=== PATIENT | female | born 1980 | race Caucasian/White ===

== ENCOUNTER 2024-11-10 09:00 | Outpatient (AMB) | payer MEDICARE, MEDICAID, SELFPAY ==
[2024-11-10 09:10] VITALS: BMI 31.5
--- NOTE | 2024-11-10 09:10 | HO.SPINEOV ---
Vital Signs 11/10/24 09:10 Height 5 ft 7 in Weight 201 lb 2 oz BMI 31.5 Intake Visit Reasons: Neck pain Intake Note: Ms. Allison Luz is here today c/o neck pain. Heating And Air Conditioning Mechanic Required: No Allergies Latex, Natural Rubber Allergy (Severe, Verified 11/10/24 09:13) Swelling meperidine (From Demerol) Allergy (Severe, Verified 11/10/24 09:13) Swelling quetiapine (From Seroquel) Allergy (Severe, Verified 11/10/24 09:13) Swelling Physical Exam Vital Signs: BMI result Body Mass Index 31.5 Assessment & Plan Assessment & Plan (1) Cervical disc disorder: Code(s): M50.90 - Cervical disc disorder, unspecified, unspecified cervical region Category: Medical Plan Dear Gordo Thank you for referring Mrs Cooper to our office today. She is a very nice 44-year-old female who has had chronic neck pain for many years, also reports a history of scoliosis, who comes in today for evaluation of MRI done at [facility] showing degenerative disc disease primarily at C3-4 and C4-5. What she reports as a posterior neck pain that radiates up to the back of her head and also goes down into her shoulders. At times she will get tingling down her arms but does not have major symptom at this point, it is primarily the pain in the neck. She did try physical therapy once and lasted 1 session and felt that it was too painful to continue. She has not done any injections. She more less just takes a leave to deal with the symptoms. No myelopathic complaints. Also reports a component of back pain that radiates down the back of her legs when she walks. PMH: Her history is a little complicated, she has history of bipolar and apparently it is managed well at this point but she is disabled from it, she has history of anxiety. 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 She is not really sure where she is in the process of working this up, she knows that she is supposed to see someone for this, but is not really sure where she stands regarding it. She is also told she had a swollen kidney or what sounds like hydronephrosis which could be secondary to her kidney stones. 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 Reports history of some kind of complex cyst that was found in her abdomen as well. She does not know the exact diagnosis. She is status post appendectomy, she also had a history of a debridement of a wound after being scratched by a cat. She is not clear that this was MRSA or if it was just secondary to the cat scratch organisms. Denies any history of hypertension, cardiopulmonary disease, stroke, liver disease, bleeding disorders, blood clots or major abdominal surgery. 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 Medications: Colace, Depakote, prazosin, gabapentin, baclofen, naproxen, albuterol, oxybutynin and divalproex. Allergies: Demerol, Seroquel Physical exam: Awake alert oriented no acute distress, she is able to stand up independently walk down the hallway with normal gait, tandem gait walking reveals no instability, she has some mild strength loss in her right hand but otherwise strength is full. Reflexes diminished bilaterally at the biceps and triceps. No Wyatt's sign. Lower extremity patellar reflexes are normal, absent reflexes at the Achilles. No clonus. Imaging review: There is cervical MRI done in September 2024 at [facility] which shows cervical degenerative disc disease primarily C3-4 and C4-5 where there is relatively severe disc collapse, bilateral neuroforaminal stenosis at C4-5. Moderate central canal stenosis but no cord signal changes seen. There is a little bit of foraminal stenosis on the left at C5-6 as well. Impression: 44-year-old female presents for evaluation of multi decade history of posterior neck pain which radiates into her shoulders which may be related to her cervical disc degeneration. At this point she has had no dedicated conservative treatment other than just trying to leave. I told her we should at least try some basic things. She is interested in cortisone injections. She is not all that interested in doing physical therapy again but I told her it would be a prerequisite before surgery secondary to normal insurance protocols. I would like to see her back in 3 months and we can re-evaluate. I did tell her that before we could consider surgery, she would need to have some kind of establish care with regard to the brain tumor and what the status of that is before anyone would consider putting her under anesthesia. Also, she has some kind of abdominal cyst and a growth in her mouth which could be cancerous given her history of alcohol abuse and long-term smoking. She needs to get some kind of dental care to figure that out as well. Thank you for allowing us to care for your patient. The total time spent with this visit with this patient was 45 minutes reviewing history, physical exam, cervical imaging review, and implementation of treatment plan or further diagnostic testing Isaiah Willis MD,PhD [facility] Orders: Orders PT Evaluation and Treatment Today M50.90 - Cervical disc disorder, unspecified, unspecified cervical region Referrals Pain Management Referral M50.90 - Cervical disc disorder, unspecified, unspecified cervical region Coding Level of Care Code New Pt Level 4 (66927) Diagnoses Cervical disc disorder M50.90
--- OUTSIDE RECORDS SUMMARY | 2024-11-10 09:52 | XMS_ITS | Encounter Summary ---
Author Organization [employer] [facility] Address [address] [place] [id number] Phone Care Team Providers Care Building Maintenance Mechanic Name Role Phone Pcp, Unknown Unavailable Unavailable Gordo Tafoya PA-C Primary Care Provider [phone] Encounter Details Date Type Department Care Team (Late st Contact Info) Description 06/20/2024 Procedure Pass [facility] [address] [place] [address] Social History Tobacco Use Types Packs/Day Years Used Date Smoking Tobacco: Every Day Cigarettes 1 37.7 Started: 1989 Smokeless Tobacco: Never Alcohol Use Standard Drinks/Week Comments Not Currently 0 (1 standard drink = 0.6 oz pur e alcohol) none since new years Child or Family Care Answer Date Record ed Do you have problems with on e of the following making it difficult for you to work, study, or receive health care? I choose not to answer 04/12/2024 Education Answer Date Recorded Are you interested in help w ith more adult education (for example, completing high school, GED, job training, learning the French language, technical skills, or developing parenting skills)? No 04/12/2024 Are you concerned about learning? Not on file 04/12/2024 No 04/12/2024 Yes 04/12/2024 Food Answer Date Recorded Within the past 6 months we worried whether our food would run out before we got money to buy more. Often True 04/12/2024 Within the past 6 months the food we bought just didn't last and we didn't have enough money to get more. Often True Residential Stability Answer Date Recor ded What is your housing situation today? I have rachelle coppola 04/12/2024 How many times have you move d in the past 12 months? Zero (I did not move) 04/12/2024 Paying for Meds Answer Date Recorded Do you have trouble paying for medicines? Yes 04/12/2024 Paying Utility Bills Answer Date Record ed Do you have trouble paying your heating or elect ricity bill? Yes 04/12/2024 Transportation Answer Date Recorded Has the lack of transportati on kept you from medical appointments or from getting medications? Yes 04/12/2024 Unemployment Answer Date Recorded Are you currently unemployed or working on a part-time or temporary basis, and looking for work? No 04/12/2024 Digital Access Answer Date Recorded No 04/12/2024 Yes 04/12/2024 Do you have reliable internet access at home? Ye s 04/12/2024 Do you have a device (e.g., phone, tablet, computer) with a working camera? Yes 04/12/2024 Intimate Partner Violence Answer Date R ecorded Are you denied basic needs s uch as food, clothing, or medical care? No 04/12/2024 In the past 12 months have y ou been in a relationship with a person who hurts, threatens, or tries to control you? No 04/12/2024 Are you denied basic needs s uch as food, clothing, or medical care? No 04/12/2024 In the past 12 months have y ou been in a relationship with a person who hurts, threatens, or tries to control you? No 04/12/2024 Comments No Sex and Gender Information Value Date Recorded Sex Assigned at Female 02/06/2024 10:11 AM EST Legal Sex Female 9:24 PM EDT Gender Identity Female 02/06/2024 10:11 AM EST Sexual Orientation Not on file documented as of this encounter Plan of Treatment Upcoming Encounters Date Type Department Care Team (Late st Contact Info) Description 11/22/2024 1:00 PM EDT Office Visit Ana Moreno [facility] [address] [place] [address] Gordo Tafoya PA-C [address] [place] [address] [email or web address] 01/04/2025 9:40 AM EDT Office Visit [facility] Internal Medicine [address] [place] [address] Gordo Tafoya PA-C [address] [place] [address] documented as of this encounter Visit Diagnoses Not on filedocumented in this encounter Additional Health Concerns Assessment Noted Time PHQ-9 Depression Total Score: 22 025 6:09 PM EDT PHQ-2 Depression Total Score: 6 07/11/19 25 6:09 PM EDT documented as of this encounter Care Teams Building Maintenance Mechanic Relationship Specialty Start Date End Date Gordo Tafoya PA-C [address] [place] [id number] PCP - General Physician Jailkeeper 04/12/24 Pcp, Unknown 03/18/17 documented as of this encounter Additional Source Comments The information contained in this document represents components of the legal health record. It is not the complete legal health record.[facility]
--- OUTSIDE RECORDS SUMMARY | 2024-11-10 09:52 | XMS_ITS | Encounter Summary ---
Author Organization [email or web address] [facility] Address [address] [place] [address] Phone Care Team Providers Care Rig Manager Name Role Phone Pcp, Unknown Unavailable Unavailable Gordo Tafoya PA-C Primary Care Provider [phone] Encounter Details Date Type Department Care Team (Late st Contact Info) Description 06/08/2024 Procedure Pass [facility], Ct Scan - [facility] [address] [place] [address] Social History Tobacco Use Types Packs/Day Years Used Date Smoking Tobacco: Every Day Cigarettes 1 37.7 Started: 1989 Smokeless Tobacco: Never Alcohol Use Standard Drinks/Week Comments Yes 0 (1 standard drink = 0.6 oz pur e alcohol) 3-4 drinks, 2 x month Child or Family Care Answer Date Record ed Do you have problems with on e of the following making it difficult for you to work, study, or receive health care? I choose not to answer 04/12/2024 Education Answer Date Recorded Are you interested in help w ith more adult education (for example, completing high school, GED, job training, learning the [place] language, technical skills, or developing parenting skills)? [...] 1:00 PM EDT Office Visit Ana Moreno [facility] Internal Medicine [address] [facility] [place] [phone] Gordo Tafoya PA-C [address] [place] [address] [email or web address] 01/04/2025 9:40 AM EDT Office Visit [facility] Internal Medicine [address] [place] [address] Gordo Tafoya PA-C [address] [place] [address] documented as of this encounter Visit Diagnoses Not on filedocumented in this encounter Additional Health Concerns Assessment Noted Time PHQ-9 Depression Total Score: 20 025 8:38 AM EST PHQ-2 Depression Total Score: 6 04/12/19 25 8:38 AM EST documented as of this encounter Care Teams Rig Manager Relationship Specialty Start Date End Date Gordo Tafoya PA-C [address] [place] [address] PCP - General Physician Direct Care Provider 04/12/24 Pcp, Unknown 03/18/17 documented as of this encounter Additional Source Comments The information contained in this document represents components of the legal health record. It is not the complete legal health record.[facility]
--- OUTSIDE RECORDS SUMMARY | 2024-11-10 09:52 | XMS_ITS | Encounter Summary ---
Author Organization [email or web address] [facility] Address [address] [place] [address] Phone Care Team Providers Care Division Order Analyst Name Role Phone Pcp, Unknown Unavailable Unavailable Gordo Tafoya PA-C Primary Care Provider [phone] Encounter Details Date Type Department Care Team (Late st Contact Info) Description 08/17/2024 Procedure Pass [facility], Ct Scan - [facility] [address] [place] [address] Social History Tobacco Use Types Packs/Day Years [...] high school, GED, job training, learning the [place] language, technical skills, or developing parenting skills)? [...] 1:00 PM EDT Office Visit Ana Moreno [facility] Internal Medicine [address] [facility] [place] [phone] Gordo Tafoya PA-C [address] [place] [address] [email or web address] 01/04/2025 9:40 AM EDT Office Visit [facility] Internal Medicine [address] [place] [address] Gordo Tafoya PA-C [address] [place] [address] documented as of this encounter Visit Diagnoses Not on filedocumented in this encounter Additional Health Concerns Assessment Noted Time PHQ-9 Depression Total Score: 10 025 12:44 PM EDT PHQ-2 Depression Total Score: 3 08/19/19 25 12:44 PM EDT documented as of this encounter Care Teams Division Order Analyst Relationship Specialty Start Date End Date Gordo Tafoya PA-C [address] [place] [address] PCP - General Physician Web Applications Architect 04/12/24 Pcp, Unknown 03/18/17 documented as of this encounter Additional Source Comments The information contained in this document represents components of the legal health record. It is not the complete legal health record.[facility]
--- OUTSIDE RECORDS SUMMARY | 2024-11-10 09:53 | XMS_ITS | Clinical Summary ---
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 docusate sodium (COLACE) 100 MG capsule Take 1 capsule by mouth every morning. 4 Active divalproex (DEPAKOTE) [address] tablet Take 2 tablets (1,000 mg total) by mouth nightly at bedtime. 30 tablet 4 Active Additional Information Patient taking differently:1,000 mg Oral Nightly,250 in the morning, Reported on 09/29/2024 prazosin (MINIPRESS) 1 MG capsule Take 1 capsule (1 mg total) by mouth daily as needed (severe anxiety). 30 capsule 4 Active prazosin (MINIPRESS) 2 MG capsule Take 2 capsules (4 mg total) by mouth nightly at bedtime. 30 capsule 4 Active sennosides 17.2 mg Tab Take 2 tablets by mouth nightly at bedtime. Active oxyBUTYnin (DITROPAN-XL) 10 MG 24 hr tablet Take 10 mg by mouth every morning. Active albuterol 90 mcg/actuation inhaler INHALE 1 PUFF BY MOUTH EVERY 6 HOURS NEEDED 5 Active naproxen (NAPROSYN) 250 MG tablet Take 1 tablet (250 mg total) by mouth 2 (two) times a day as needed (pain). 60 tablet 2 5 Active naproxen sod/diphenhydr amine (ALEVE PM ORAL) Take 1 tablet by mouth nightly at bedtime. Active baclofen (LIORESAL) 5 mg tablet Take 1 tablet (5 mg total) by mouth 3 (three) times a day as needed for spasm. 15 tablet 5 Active EPINEPHrine 0.3 mg/0.3 mL auto-injector Inject 0.3 mL (0.3 mg total) into the muscle as needed for anaphylaxis. 2 each 5 Active gabapentin (NEURONTIN) 100 MG capsule Take 1 capsule (100 mg total) by mouth 3 (three) times a day. 21 capsule 5 Active senna 8.6 mg tablet TAKE 1 TABLET BY MOUTH TWICE A DAY AT 9AM AND 5PM 180 tablet 5 Active escitalopram oxalate (LEXAPRO) 20 MG tablet Take 20 mg by mouth daily. 2 10/26/19 22 Discontin ued(Error ) Active Problems Problem Noted Date Diagnosed Date Acute otitis media 09/29/2024 Assessment & Plan (09/29/2024 10:05 AM EDT): Patient noted to have a ear pain which started a couple days ago. On physical exam she has noted to have tenderness to palpation over the pinna and tragus on the right with a blunted TM and external canal shows edema and erythema. No noted tenderness palpation over the mastoid process consistent with otitis media/externa. Patient will be started on Augmentin 875 mg p.o. twice daily for 7 days. Patient was advised to take a probiotic with the antibiotic. Syncope 08/21/2024 Assessment & Plan (09/29/2024 10:08 AM EDT): Patient had been experiencing syncopal episodes in was concerned about narcolepsy however patient had a full workup with sleep medicine and it was determined not to be narcolepsy. She even underwent an echocardiogram and a 30-day Holter monitor which were noted to be negative. Stress test has been ordered and pending. An EEG was also ordered however patient needed to cancel that appointment and has not rescheduled this. However she followed up with her psychiatrist and patient was taken off of the Latuda and hydroxyzine. She states since being off these medications she has had no further episodes of syncope and states that she feels great. She notes that she has much more energy during the day and is no longer fatigued. I encouraged her to remain off the Latuda and hydroxyzine and to continue to follow-up with her psychiatrist. I did also for complete sake encourage the patient to reschedule her EEG. Assessment & Plan (08/21/2024 4:55 PM EDT): Patient had been experiencing syncopal episodes and she had brought up a concern for narcolepsy. Patient had a full workup with sleep medicine which was determined not to be narcolepsy. Given these episodes I had ordered an echocardiogram and a 30-day Holter monitor which was noted to be negative. Of note she also has a stress test that is currently pending which she has not rescheduled as of yet. I did explain to the patient that the neck step would be ordering an EEG for further assessment and to rule out seizures. Patient denies any history of convulsions, feces or urinary incontinence. -EEG ordered Left arm weakness 08/21/2024 Assessment & Plan (08/21/2024 4:53 PM EDT): Patient has been experiencing balance issues, dropping objects out of her left hand and involuntary movements of her left arm. She notes this started about 3 years ago after she fell however the symptoms resolved and then returned once again and now have progressively gotten worse. Based on these findings I was concerned about MS and therefore had ordered a cervical MRI and patient wanted to have this done at [facility] however she pushed off the appointment and then ended up not making the appointment. Unfortunately this is a telemedicine visit and therefore I am unable to do a neurologic exam. I did explain to the patient that I would like to see her in person in order to perform a neurologic assessment. Will order a cervical spine MRI for further evaluation however I did explain to the patient that this could be declined given I have not been able to perform a full assessment on her in person. Chronic left-sided low back pain without sciatic a 07/27/2024 Assessment & Plan (07/27/2024 2:19 PM EDT): Patient with a longstanding history of low back pain most recently with increase back pain noted to have muscle spasms in the paraspinous musculature of the lumbar region and lower extremity weakness on physical examination. Patient underwent recent MRI of the lumbar spine which revealed lumbar degenerative disc disease with moderate left neural foraminal narrowing at L5-S1. No lumbar spinal canal narrowing. She is scheduled to see [facility] physical therapy in the next week or 2. I have advised her to continue this. I advised her to continue taking hxmy-ejo-hundpfe medications. -Referral to [facility] for possible cortisone injections to help with her pain Hydroureteronephrosis 07/27/2024 Assessment & Plan (09/29/2024 10:06 AM EDT): Patient found to have findings on most recent CT abdomen and pelvis that back in August. She was referred to nephrology however patient states that she did go to 1 appointment but missed another appointment and feels as though is that her insurance may not be covering this particular inclusion special educator therefore she was advised to look into her insurance company to see who is covered and I am happy to send a another referral. Of note she has been having some intermittent abdominal cramping however it is also down in the lower abdomen and across no noted urinary symptoms. Assessment & Plan (07/27/2024 2:17 PM EDT): Incidental finding on MRI of lumbar spine. I have spoken to urology who will see the patient. Urgent referral placed for patient to be seen and evaluated by Dr. Don. I will also have patient be seen by nephrology and have placed a referral for Dr. Correa Vision changes 07/27/2024 Assessment & Plan (07/27/2024 2:26 PM EDT): Patient noted to have vision changes who had been seen by the area director of home health sales and a change in her prescription had been made. She continues to have some changes in her vision such as blurred vision. Of note on one of her last scan she was found to have an incidental finding of a meningioma. An MRI brain has been ordered and is currently booked on 08/04 for further investigation along with her changes in vision concern for underlying MS. Cervicalgia 07/11/2024 Assessment & Plan (09/29/2024 10:16 AM EDT): Patient has been seen for complaints of neck pain and varying weakness of her extremities. Of note patient had complaint of left upper extremity weakness however during her last office visit I was unable to do a physical exam as it was due to her telemedicine visit. Her cervical MRI revealedMultilevel degenerative changes as detailed above, most prominent at C4-C5, with moderate spinal and severe bilateral foraminal stenosis. Which would not explain her symptoms. She also has very lower extremity weakness and has undergone a lumbar MRI which revealed Lumbar degenerative disc disease with moderate left neural foraminal narrowing at L5-S1. No lumbar spinal canal narrowing. Patient had been referred to Dr.Oh blanco ever they do not accept her insurance and therefore she had also been sent to [facility] however patient did not go. Dr. Willis referral has been placed for further assessment At this time her neck pain could be a result from significant arthritis in her neck however her varying extremity weakness is unexplained and she had been worked up for MS with a brain MRI which showed an incidental finding of a meningioma and no noted lesions to suggest a mass. Her physical exam today revealed No tenderness to palpation over the spinous processes of the cervical region. No noted muscle spasms in the paraspinous musculature. Shoulder shrug on the right is 4 out of 5 with biceps and triceps bilaterally 5 out of 5. Handgrip is 5 out of 5 in the upper extremities. Right lower extremity is 5 out of 5 and left lower extremity is 3-4 out of 5. - I will await Dr. Willis evaluation and recommendations however if they feel that she would benefit from a neurology evaluation I am happy to place that referral as well. - She continues to take gabapentin 100 mg p.o. 3 times daily however patient mentions that she has only been taking this as needed. - Continue naproxen 250 mg p.o. twice daily as needed Assessment & Plan (07/11/2024 1:58 PM EDT): Patient with noted neck pain with some symptoms of weakness of her upper extremities and lower extremities along with some dexterity issues however it is hard to know how bad the dexterity issues are or if it is true weakness on physical exam as this was a telemedicine visit. I had advised that the patient to come in for an in person visit to allow me to do a full assessment of her symptoms as these typically are symptoms of either myelopathy, radiculopathy, MS or myelitis. I did explain that it would be important for her to come in next week to have a full assessment. In the meantime I have advised her to take Tylenol for pain and we will obtain a cervical x-ray to rule out any acute pathology. Meningioma 07/11/2024 Assessment & Plan (07/11/2024 2:00 PM EDT): Patient underwent a CT at the recommendation of [facility] looking for other causes of her insomnia/daytime sleepiness as she was ruled out for narcolepsy. She underwent a CT scan which revealed an incidental finding of a small calcified dural based lesion along with left tuberculum sella, consistent with a meningioma. MRI brain was ordered however patient missed the appointment therefore she was advised to call them to reschedule this as it is important for further evaluation. Of note I do not feel that this finding is or the cause of her daytime sleepiness. Irregular menstrual cycle 06/15/2024 Overview (06/15/2024): Periods getting a bit farther apart, flow can be heavier Also with hot flashes consistent with perimenopause Assessment & Plan (06/15/2024 12:00 PM EDT): Reviewed some treatment options at her annual exam, levonorgestrel IUD can be very effective in addressing heavy flow, she can consider adding estradiol patch for the hot flashes Plans to return for Mirena IUD, pamphlet given, declined pretreatment Rxs, will take ibuprofen Hot flashes 06/15/2024 Assessment & Plan (06/15/2024 12:01 PM EDT): Can add estradiol ideally transdermally with the Mirena IUD if desired Other insomnia 05/23/2024 Breast cancer screening by mammogram 04/12/2024 Assessment & Plan (04/12/2024 12:58 PM EST): Mammogram [facility] referral Colon cancer screening 04/12/2024 Assessment & Plan (04/12/2024 12:58 PM EST): GI [facility] referral Annual physical exam 04/12/2024 Assessment & Plan (04/12/2024 12:59 PM EST): I will obtain a CMP, TSH, lipid panel and fasting glucose Follow-up 1 year for annual physical Mass of mouth 04/12/2024 Assessment & Plan (04/12/2024 12:58 PM EST): Patient noted to have a 1 cm flesh-colored hard mass on the roof of her mouth. She does carry history of tobacco use concern for underlying malignancy. Patient will require a biopsy therefore we will refer to [facility] oral surgeons Bipolar disorder 04/12/2024 Assessment & Plan (07/11/2024 1:56 PM EDT): Patient with a history of bipolar disorder, anxiety and depression who follows with a psychiatrist and therapist maintained on 250 mg in the morning of Depakote and then 1000 mg nightly. She is also on hydroxyzine 25 mg twice daily as needed and Latuda 40 mg p.o. twice daily. Her PHQ-9 score is noted at 22. I did discuss this with the patient and the patient states that the majority of her anxiety and depression stems from her current medical conditions. I did explain to her that it is important for her to follow-up with her therapist as well as psychiatry as she may need a bump in her medication to get her through this time until we are able to figure out the root cause of her condition. Assessment & Plan (04/12/2024 1:01 PM EST): Patient with a history of bipolar disorder as well as anxiety and depression and is maintained on Depakote, prazosin, Latuda and Atarax. Patient was recently hospitalized for 9 days on at [facility] for a manic phase. She mentions during that time her medications were adjusted and she states that she has been doing well since she was discharged on 02/15/2024. -Continue prazosin 1 mg daily as needed and 4 mg at night -Continue Depakote 1000 mg nightly -Continue Zyprexa 5 mg nightly as needed for sleeping -Continue Atarax 50 mg every night and sometimes 25 mg during the day -Continue Latuda 40 mg p.o. twice daily -Patient follows psychiatry through [facility] last appointment was last week. -Follow with therapist weekly last appointment was last week Mass in rectum 04/12/2024 Assessment & Plan (04/12/2024 1:03 PM EST): Patient noted to have a mass around the anus which she noticed a little while back. On physical examination it is noted to be a hard flesh colored mass which is movable. It could be a hemorrhoid however patient mentions that she does not have any bleeding when she defecates and there is no blood noted in the toilet or on the tissue paper. I will have referred her to [facility] GI for further evaluation and colonoscopy Suicidal ideation 02/06/2024 Severe recurrent major depre ssion without psychotic features 02/06/2024 Resolved Problems Problem Noted Date Diagnosed Date Resolved Date Acute pain of left knee 07/27/202409/12 Assessment & Plan (07/27/2024 2:23 PM EDT): Patient with a history of knee pain however most recently started with acute knee pain a few days ago. She describes the pain on the lateral aspect of the left knee, thigh and into the tibial plateau. On physical examination she has tenderness to palpation over the left lateral aspect of the knee with noted ecchymosis. No Trauma or injury noted. Negative anterior/posterior drawer test. Negative valgus valgus stress test. -Left knee x-ray -Continue to take OTC medications as prescribed Tick bite of left knee 07/27/202409/29 Assessment & Plan (07/27/2024 2:28 PM EDT): Noted tick bite on the posterior aspect of the left knee. Patient mentions that she is unclear of how long it was attached for. It was a deer tick. She denies any rashes. However given she does not know how long it was attached for I will start her on doxycycline 100 mg p.o. twice daily x 10 days Chest pain 07/11/2024 07/27/2024 Assessment & Plan (07/11/2024 1:57 PM EDT): Patient with intermittent chest pain which she describes as chest pressure with some intermittent sharp episodes into the left chest area with some associated shortness of breath. She denies any radiation of pain into the arm or into the jaw. I will obtain a cardiac stress test however patient was advised that if she develops further chest pain she is to call 911 and be transported to the emergency department for further evaluation. Malaise and fatigue 04/26/2024 09/30/19 Assessment & Plan (07/11/2024 1:57 PM EDT): Patient with consistent malaise and fatigue which is unclear at this point. She mentions that she has been having difficulty even walking and also holding objects. The holding of the objects in her hands and dropping them as well as some weakness of her upper and lower extremities could be related to her neck also ruling out MS. Patient noted to have overall fatigue therefore I will obtain some labs to consist of Lyme, B12, iron study Cervical cancer screening 04/12/2024 Assessment & Plan (04/12/2024 12:58 PM EST): [facility] referral [facility] Encounters Date Type Department Care Team Description 11/09/2024 Refill [facility] Internal Medicine [address] [facility] [place] [address] Gordo Tafoya PA-C Medication Refill 11/08/2024 Telephone [facility] Internal Medicine [address] [facility] [place] [address] Gordo Tafoya PA-C Appointment 11/07/2024 Telephone [facility] Internal Medicine [address] [place] [address] Gordo Tafoya PA-C STD Testing 10/30/2024 9:45 AM EDT - 10/30/2024 11:59 PM EDT Hospital Encounter [facility] - [address] [place] [address] Gordo Tafoya PA-C Discharge Disposition: Home or Self Care 10/30/2024 Ancillary Orders [facility]Outside Imaging [address] [place] [address] Unknown, Unknown, 10/30/2024 Ancillary Orders [facility]Outside [facility] [address] [place] [address] Unknown, Unknown, 10/30/2024 Ancillary Orders [facility]Outside [facility] [address] [place] [address] Unknown, Unknown, 10/30/2024 Ancillary Orders [facility]Outside Imaging [address] [place] [address] Unknown, Unknown, 10/30/2024 Ancillary Orders [facility]Outside Imaging [address] [place] [address] Unknown, Unknown, 10/03/2024 Orders Only [facility] Internal Medicine [address] [place] [address] ProviderLucila MD 10/02/2024 Telephone [facility] Urology Virtual Department [address] [place] [id number] Letty Monreal MD 09/29/2024 9:00 AM EDT Office Visit [facility] Internal Medicine [address] [place] [address] Gordo Tafoya PA-C Acute otitis media, unspecified otitis media type (Primary Dx); Hydroureteronephro sis; Syncope, unspecified syncope type; Cervicalgia 09/14/2024 6:20 PM EDT - 09/14/2024 11:59 PM EDT Hospital Encounter [address] [address] Gordo Tafoya PA-C Discharge Disposition: Home or Self Care 08/24/2024 9:03 AM EDT - 08/24/2024 11:59 PM EDT Hospital Encounter [address] [address] Letty Monreal MD Discharge Disposition: Home or Self Care 08/23/2024 Telephone [facility] Internal Medicine [address] [place] [address] Gordo Tafoya PA-C PT1 08/21/2024 4:00 PM EDT Telemedicine [facility] Internal Medicine [address] [place] [address] Gordo Tafoya PA-C Left arm weakness (Primary Dx); Syncope, unspecified syncope type 08/21/2024 Procedure Pass [address] [address] 08/17/2024 Procedure Pass [address] [address] 08/17/2024 Transcribe Orders Virtual Department [address] [place] [address] Letty Monreal MD Gross hematuria (Primary Dx) 08/11/2024 Orders Only [facility] Internal Medicine [address] [place] [address] ProviderLucila MD 04/12/2024 Procedure Pass [facility] - [address] [place] [address] from Last 3 Months Immunizations Immunization Administration Dates Next Due INFLUENZA, SPLIT VIRUS, TRIVALENT PF 02/15/2024 Influenza Quadrivalent MDCK Preservative Free IM 2022 Influenza Quadrivalent Preservative Free IM 12/0 08/2020,02/07/2020 Pneumococcal conjugate PCV20 01/31/2023 Pneumococcal polysaccharide PPSV23 06/04/2010 Td (adult),2 Lf Tetanus Toxoid, PF, Adsorbed 07/2007 Tdap 06/25/2015 Family History Medical History Relation Comments Cancer Father Brain and lung c ancer Schizophrenia Father Cancer Maternal Grandmother Skin cancer Cancer Sister I do t k ow what kind but she has ang[place] cancer many times( half-sister different father) Relation Status Comments Father Maternal Grandmother Alive Sister Alive Social History Tobacco Use Types Packs/Day Years Used Date Smoking Tobacco: Every Day Cigarettes 1 30.2 Started: 08/27/1994 Smokeless Tobacco: Never Tobacco Cessation:Ready to Q uit: Not Asked; Counseling Given: Not Answered Comments:Not a full pack a day at first for many many years it was just a few per day Alcohol Use Standard Drinks/Week Comments Not Currently [...] high school, GED, job training, learning the [place] language, technical skills, or developing parenting skills)? [...] your housing situation today? I have rachelle sing 04/12/2024 How many times have you move [...] AM EST Sexual Orientation Not on file Last Filed Vital Signs Vital Sign Reading Time Taken Comments Blood Pressure 112/66 09/29/2024 8:59 AM EDT Pulse 85 09/29/2024 8:59 AM EDT Temperature 36.5 C (97.7 F) 05/23/2024 10:41 AM EDT Respiratory Rate 15 09/29/2024 8:59 AM EDT Oxygen Saturation 98% 09/29/2024 8:59 AM EDT Inhaled Oxygen Concentration - - Weight 89.6 kg (197 lb 9.6 oz) 09/29/2024 8:59 A M EDT Height 170.2 cm (5' 7.01 ) 09/29/2024 8:59 AM ED T Body Mass Index 30.94 09/29/2024 8:59 AM EDT Plan of Treatment Upcoming Encounters Date Type Department Care Team (Late st Contact Info) Description 11/22/2024 1:00 PM EDT Office Visit [facility] Internal Medicine [address] [place] [address] Gordo Tafoya PA-C [address] [place] [address] [email or web address] 01/04/2025 9:40 AM EDT Office Visit [facility] Internal Medicine [address] [place] [address] Gordo Tafoya PA-C [address] [place] [address] [email or web address] Health Maintenance Due Date Last Done Comments COLOGUARD 2023 COLONOSCOPY 2023 COLORECTAL CANCER SCREENING 2023 FIT TEST 2023 FOBT 2023 SIGMOIDOSCOPY 2023 VIRTUAL COLONOSCOPY 2023 INFLUENZA VACCINE (#1) 2024 , 2022, 02/17/2021, Additional history exists VALPROIC ACID (DEPAKENE) LEVEL 02/11/2025 02/12/2024 Adult Td,Tdap Booster 06/24/2025 06/25/2015, 008 COVID-19 VACCINE ( season) 2025 01/31/2023, 2022, 11/18/2021, Additional history exists Postponed from 11/14/2023 (Patient Declines / Guardian Declines) HIV ONE-TIME SCREENING (18-65 YEARS) 07/27/2025 Postponed from 1996 (Patient Declines / Guardian Declines) DEPRESSION SCREENING 09/29/2025 09/29/2024, 09/30/19 25 SMOKING Hx and SMOKELESS TOBACCO SCREENING 10/30/2025 10/30/2024 MAMMOGRAM 10/30/2026 10/30/2024, 12/13, 12/30/2020, Additional history exists PAP SMEAR 04/10/2027 04/10/2022, 08/31/2006 SCREENING FOR DIABETES 05/04/2027 05/04/2024, 2023 LIPID PANEL 05/04/2029 05/04/2024, 01/14, 02/07/2024 HEPATITIS C SCREENING Completed 07/09/2021 PNEUMOCOCCAL VACCINES (0-49 years) Completed 01/31/2023, 06/04/2010 HEPATITIS A VACCINES Aged Out No long er eligible based on patient's age to complete this topic HIB VACCINES Aged Out No longer eligi ble based on patient's age to complete this topic MENINGOCOCCAL VACCINES (ACWY) Aged Out No longer eligible based on patient's age to complete this topic MENINGOCOCCAL VACCINES (B) Aged Out N o longer eligible based on patient's age to complete this topic Medical Devices Not on file Procedures Procedure Name Priority Date/Time Associated Diagnosis Comments BI MAMMOGRAM SCREENING WITH TOMOSYNTHESIS WITH CAD (BILATERAL) Routine 10/30/2024 10:15 AM EDT Breast cancer screening by mammogram MRI CERVICAL SPINE (NEURO) WITH AND WITHOUT CONTRAST Routine 09/14/2024 7:32 PM EDT Left arm weakness CT ABDOMEN/PELVIS (UROGRAM) WITH AND WITHOUT CONTRAST Routine 08/24/2024 10:09 AM EDT Gross hematuria OUTSIDE IMAGING Routine 08/24/2024 8:52 AM EDT EVENT MONITOR LOOPING UP TO 30 DAYS Routine 08/18/2024 11:46 AM EDT Syncope and collapse OUTSIDE ECG Routine 08/10/2024 9:02 AM EDT LIPID PANEL Routine 05/04/2024 8:36 AM EST Annual physical exam VALPROIC ACID Timed 02/12/2024 6:50 AM EST PAP TEST Routine 04/10/2022 8:23 AM EST OUTSIDE HEPATITIS C VIRUS SCREENING Routine 07/09/2021 from Last 3 Months or Most Recently Relevant to Health Maintenance Results * BI MAMMOGRAM SCREENING WITH TOMOSYNTHESIS WITH CAD (BILATERAL) (10/30/2024 10:15 AM EDT) Anatomical Region Laterality Modality Breast Left, Breast Right, Breast Bilateral Bila teral Mammography 10/31/2024 8:40 AM EDT Impressions 10/31/2024 8:55 AM EDT No mammographic evidence of malignancy in either breast. Annual screening mammography is recommended. BI-RADS 1 NEGATIVE The patient will be notified of the results and recommendations. Narrative 10/31/2024 8:55 AM EDT BI MAMMOGRAM SCREENING WITH TOMOSYNTHESIS WITH CAD (BILATERAL) Additional patient information: Screening. COMPARISON: Comparison is made with relevant prior imaging. Breast composition: The breasts are heterogeneously dense, which may obscure small masses. FINDINGS: No abnormal masses, suspicious calcifications, or other significant findings are identified mammographically in either breast. There has been no significant interval change. Procedure Note Mary Jane Reyes MD - 10/31/2024 BI MAMMOGRAM SCREENING WITH TOMOSYNTHESIS WITH CAD (BILATERAL) Additional patient information: Screening. COMPARISON: Comparison is made with relevant prior imaging. Breast composition: The breasts are heterogeneously dense, which mayobscure small masses. FINDINGS: No abnormal masses, suspicious calcifications, or other significantfindings are identified mammographically in either breast. There has been no significant interval change. IMPRESSION: No mammographic evidence of malignancy in either breast. Annual screening mammography is recommended. BI-RADS 1 NEGATIVE The patient will be notified of the results and recommendations. us Gordo Tafoya PA-C IMG MG EXAMS Final Result * MRI CERVICAL SPINE (NEURO) WITH AND WITHOUT CONTRAST (09/14/2024 7:32 PM EDT) Anatomical Region Laterality Modality C-spine Magnetic Resonan ce 09/18/2024 3:17 PM EDT Impressions 09/18/2024 3:23 PM EDT 1. Multilevel degenerative changes as detailed above, most prominent at C4-C5, with moderate spinal and severe bilateral foraminal stenosis. Narrative 09/18/2024 3:23 PM EDT MRI CERVICAL SPINE (NEURO) WITH AND WITHOUT CONTRAST Referring clinician's provided indication for this examination in Epic: * Cervical radiculopathy, no red flags TECHNIQUE: MRI CERVICAL SPINE (NEURO) WITH AND WITHOUT CONTRAST Multi-sequence, multi-planar MRI of the cervical spine was performed with and without intravenous contrast. COMPARISON: XR CERVICAL SPINE 2-3 VIEWS 2024- FINDINGS: CERVICAL SPINE: Alignment and Vertebrae: Straightening normal cervical lordosis. Minimal 2 to 3 mm grade 1 anterolisthesis of C4 and 2 to 3 mm grade 1 retrolisthesis is C4-C5. Vertebral body height is maintained. Marrow: Endplate centered degenerative changes. No focal suspicious bone marrow replacing lesion. Discs and Endplates: Mild multilevel loss of disc height with disc desiccation. Spinal Cord: No spinal cord compression or signal abnormality. Contrast: No abnormal enhancement. Soft Tissue: No prevertebral edema. Bilateral mastoid effusions. Findings by level: C2-C3: No spinal or foraminal stenosis. C3-C4: Posterior disc osteophyte complex with facet and uncovertebral arthropathy contributing to moderate spinal and moderate bilateral foraminal stenosis. C4-C5: Posterior disc osteophyte complex with facet and uncovertebral arthropathy contributing to moderate spinal and severe bilateral foraminal stenosis. C5-C6: Disc bulge superimposed posterior central disc protrusion with uncovertebral arthropathy contributing to [id number] spinal, bilateral foraminal stenosis. C6-C7: Disc bulge with minimal uncovertebral arthropathy contributing mild bilateral foraminal stenosis. C7-T1: No significant spinal or foraminal stenosis. Procedure Note Jacky Kendrick MD, PhD - 09/18/2024 MRI CERVICAL SPINE (NEURO) WITH AND WITHOUT CONTRAST Referring clinician's provided indication for this examination in Epic: *Cervical radiculopathy, no red flags TECHNIQUE: MRI CERVICAL SPINE (NEURO) WITH AND WITHOUT CONTRAST Multi-sequence, multi-planar MRI of the cervical spine was performed withand without intravenous contrast. COMPARISON: XR CERVICAL SPINE 2-3 VIEWS 2024- FINDINGS: CERVICAL SPINE: Alignment and Vertebrae: Straightening normal cervical lordosis. Minimal 2to 3 mm grade 1 anterolisthesis of C4 and 2 to 3 mm grade 1 retrolisthesisis C4-C5. Vertebral body height is maintained. Marrow: Endplate centered degenerative changes. No focal suspicious bonemarrow replacing lesion. Discs and Endplates: Mild multilevel loss of disc height with discdesiccation. Spinal Cord: No spinal cord compression or signal abnormality. Contrast: No abnormal enhancement. Soft Tissue: No prevertebral edema. Bilateral mastoid effusions. Findings by level: C2-C3: No spinal or foraminal stenosis. C3-C4: Posterior disc osteophyte complex with facet and uncovertebralarthropathy contributing to moderate spinal and moderate bilateralforaminal stenosis. C4-C5: Posterior disc osteophyte complex with facet and uncovertebralarthropathy contributing to moderate spinal and severe bilateral foraminalstenosis. C5-C6: Disc bulge superimposed posterior central disc protrusion withuncovertebral arthropathy contributing to [id number] spinal,bilateral foraminal stenosis. C6-C7: Disc bulge with minimal uncovertebral arthropathy contributing mildbilateral foraminal stenosis. C7-T1: No significant spinal or foraminal stenosis. IMPRESSION: 1. Multilevel degenerative changes as detailed above, most prominent atC4-C5, with moderate spinal and severe bilateral foraminal stenosis. Gordo Tafoya PA-C IMG MR XSPECIALTY Final Resul t * CT ABDOMEN/PELVIS (UROGRAM) WITH AND WITHOUT CONTRAST (08/24/2024 10:09 AM EDT) [facility]G RECOMMENDATION COMMENT Moderate to severe chronic left hydroureteroneph rosis; left associated cortical thinning; distal ureter not well visualized; Left adnexal complex cystic lesion 45 x 35 mm; Left adnexal not fully characterized [facility] IMG RECOMMENDATION COMMENT Moderate to severe chronic left hydroureteroneph rosis; left associated cortical thinning; distal ureter not well visualized; Left adnexal complex cystic lesion 45 x 35 mm; Left adnexal not fully characterized [facility] Anatomical Region Laterality Modality Abdomen, Pelvis Computed Tomogra phy 08/30/2024 12:3 2 PM EDT Impressions 08/30/2024 12:41 PM EDT 1. Moderate to severe chronic left hydroureteronephrosis with associated cortical thinning. The distal ureter is not well visualized due to delayed passage of contrast. 2. Left adnexal complex cystic lesion measuring 45 x 35 mm not fully characterized by CT. RECOMMENDATION: DISTAL URETER, UVJ AND LEFT ADNEXA CAN ALL BE BEST EVALUATED WITH MRI ABDOMEN AND PELVIS IN 1-3 MONTHS Narrative 08/30/2024 12:[address] ABDOMEN/PELVIS (UROGRAM) WITH AND WITHOUT CONTRAST Referring clinician's provided indication for this examination in Epic: Outside Radiology Order; DEMEROL ALLERGY, NO ASTHMA, NO DM TECHNIQUE: Multidetector-row CT of the abdomen and pelvis was performed before and after administration of intravenous contrast using tailored dose modulation techniques. Images were reconstructed in the axial, coronal, and sagittal planes. COMPARISON: FINDINGS: Lower chest: Clear lung bases. No effusions. Liver: No focal lesions. Biliary: No biliary ductal dilatation. Spleen: No splenomegaly or focal lesions. Pancreas: No masses or ductal dilatation. Adrenal glands: No nodules. Kidneys/ureters: There is chronic moderate to severe left hydroureteronephrosis. Although excretion appears approximately symmetric, the hydronephrosis delays passage of the contrast through the ureter which remains unopacified. There is partial opacification at a 10 minute film (which is also labeled 100 seconds but is series 19 and 20). It is difficult to exclude distal ureteral abnormality. Particularly, and is difficult to differentiate the distal ureter from the adjacent adnexal abnormality. There is left cortical thinning. Bowel: No dilation or wall thickening. Peritoneum/retroperitoneum: No masses, free air, or fluid. Lymph nodes: No lymphadenopathy. Pelvic organs/bladder: Left adnexal complex cystic lesion measuring 45 x 35 mm not well characterized on CT.. Vessels: No abdominal aortic aneurysm. Bones/soft tissues: No destructive osseous lesions. Procedure Note Kennedy Lozano MD, ÓSCAR - 08/30/2024 CT ABDOMEN/PELVIS (UROGRAM) WITH AND WITHOUT CONTRAST Referring clinician's provided indication for this examination in [facility]:Outside Radiology Order; DEMEROL ALLERGY, NO ASTHMA, NO DM TECHNIQUE: Multidetector-row CT of the abdomen and pelvis was performedbefore and after administration of intravenous contrast using tailoreddose modulation techniques. Images were reconstructed in the axial,coronal, and sagittal planes. COMPARISON: FINDINGS: Lower chest: Clear lung bases. No effusions. Liver: No focal lesions. Biliary: No biliary ductal dilatation. Spleen: No splenomegaly or focal lesions. Pancreas: No masses or ductal dilatation. Adrenal glands: No nodules. Kidneys/ureters: There is chronic moderate to severe lefthydroureteronephrosis. Although excretion appears approximately symmetric,the hydronephrosis delays passage of the contrast through the ureter whichremains unopacified. There is partial opacification at a 10 minute film(which is also labeled 100 seconds but is series 19 and 20). It isdifficult to exclude distal ureteral abnormality. Particularly, and isdifficult to differentiate the distal ureter from the adjacent adnexalabnormality. There is left cortical thinning. Bowel: No dilation or wall thickening. Peritoneum/retroperitoneum: No masses, free air, or fluid. Lymph nodes: No lymphadenopathy. Pelvic organs/bladder: Left adnexal complex cystic lesion measuring 45 x35 mm not well characterized on CT.. Vessels: No abdominal aortic aneurysm. Bones/soft tissues: No destructive osseous lesions. IMPRESSION: 1. Moderate to severe chronic left hydroureteronephrosis with associatedcortical thinning. The distal ureter is not well visualized due to delayedpassage of contrast. 2. Left adnexal complex cystic lesion measuring 45 x [address] CT[address] RECOMMENDATION: DISTAL URETER, UVJ AND LEFT ADNEXA CAN ALL BE BEST EVALUATED WITH MRIABDOMEN AND PELVIS IN 1-[address] ABD/PELVIS Fi nal Result * Outside Imaging Report Only (08/24/2024 8:52 AM EDT) Historical Provider MD MARK XR CHEST Final Res ult * Event Monitor Looping up to 30 Days (08/18/2024 11:46 AM EDT) Anatomical Region Laterality Modality Heart Other Narrative 08/18/2024 4:07 PM EDT Event monitor report Enrollment period-22 days Indication-syncope 5 patient triggered events recorded, upon further review, consistent with sinus rhythm Recommendation-correlate clinically Gordo Tafoya PA-C CV CARDIAC SERVICES ORDERABLE S Final Result * Outside ECG Report Only (08/10/2024 9:02 AM EDT) Historical Provider MD ECG ORDERABLES Final Res ult * Lipid panel (05/04/2024 8:36 AM EST) HDL 44 mg/dL [facility] Comment: Interpretation <40 mg/dL: Low HDL cholesterol (major risk factor for CHD) Greater than or equal to 60 mg/dL: High HDL cholesterol ( negative risk factor for CHD) HDL - cholesterol is affected by a number of factors, e.g. smoking, excerise, hormones, sex and age. CHOLESTEROL 182 0 - 240 mg/dL [facility] TRIGLYCERIDES 116 30 - 160 mg/dL [facility] LDL 115 50 - 129 mg/dL [facility] Comment: LDL levels in terms of risk for coronary heart disease: <100 mg/dL: Optimal 100-129 mg/dL: Near or above optimal 130-159 mg/dL: Borderline high 160-189 mg/dL: High >190 mg/dL: Very High CARDIAC RISK RATIO 4.1 3.3 - 4.4 [facility] Blood 05/04/2024 8:36 AM EST 05/04/2024 8:38 AM EST Gordo Tafoya PA-C LAB BLOOD ORDERABLES Final Re sult [address] [address] * Valproic acid (02/12/2024 6:50 AM EST) VALPROIC ACID 68.5 50.0 - 100.0 ug/mL [facility] Blood 02/12/2024 6:50 AM EST 02/12/2024 6:59 AM EST Britni Doshi MD LAB BLOOD ORDERABLES Fi nal Result [facility] [address] [place] [address] * Pap Test (04/10/2022 8:23 AM EST) Result - External See Scanned Results Impressions Lida Gentile, ETL DEVELOPER - 04/10/2022 8:23 AM EST NILM, HPV neg Historical Provider CYTOLOGY ORDERABLES Edite d Result - Final * Outside Hepatitis C Virus Screening (07/09/2021) Hepatitis C Screening - External Neg Historical Provider LAB BLOOD ORDERABLES Marnie l Result from Last 3 Months or Most Recently Relevant to Health Maintenance Insurance * Guarantor: Sheyla Huertas Account Type Relation to Patient Date of Phone Billing Address Personal/Family Self [address] [place] [address] [address], [address] [place] [address] MEDICARE PART A & B [facility] MEDICARE REPLACEMENT MEDICARE PART A & B [facility] MEDICARE REPLACEMENT MEDICARE PART A & B [facility] MEDICARE REPLACEMENT MEDICARE PART A & B [facility] MEDICARE REPLACEMENT MEDICARE PART A & B [facility] MEDICARE REPLACEMENT MEDICARE PART A & B [facility] MEDICARE REPLACEMENT , [address] [place] [address] , [address] [place] [address] , [address] [place] [address] , [address] [place] [id number] Advance Directives For more information, please contact: [phone] (9AM - 5PM [facility], Wednesday-Wednesday) * Full Code (Latest Code Status on File) Date Activated Date Inactivated Comments 02/06/2024 3:55 PM Question Answer Comments Code Status Confirmed With: Patient Care Teams Implant Polisher Relationship Specialty Start Date End Date Gordo Tafoya PA-C [address] [place] [address] [email or web address] PCP - General Physician Dramatic Critic 04/12/24 Pcp, Unknown 03/18/17 Additional Source Comments The information contained in this document represents components of the legal health record. It is not the complete legal health record.[facility]
--- OUTSIDE RECORDS SUMMARY | 2024-11-10 09:53 | XMS_ITS | Encounter Summary ---
Author Organization [facility] Address [address] [place] [address] Phone Care Team Providers Care School Manager Name Role Phone Pcp, Unknown Unavailable Unavailable Gordo Tafoya PA-C Primary Care Provider [phone] Encounter Details Date Type Department Care Team (Late st Contact Info) Description 08/21/2024 Procedure Pass [facility] [address] [place] [address] Social History Tobacco Use Types Packs/Day Years [...] high school, GED, job training, learning the [place] language, technical skills, or developing parenting skills)? [...] 1:00 PM EDT Office Visit [facility] Internal Medicine [address] [facility] [place] [address] Gordo Tafoya PA-C [address] [place] [address] 01/04/2025 9:40 AM EDT Office Visit [facility] Internal Medicine [address] [place] [address] Gordo Tafoya PA-C [address] [place] [address] [email or web address] documented as of this encounter Visit Diagnoses Not on filedocumented in this encounter Additional Health Concerns Assessment Noted Time PHQ-9 Depression Total Score: 10 025 12:44 PM EDT PHQ-2 Depression Total Score: 3 08/19/19 25 12:44 PM EDT documented as of this encounter Care Teams School Manager Relationship Specialty Start Date End Date Gordo Tafoya PA-C [address] [place] [email or web address] PCP - General Physician Business Banking Representative 04/12/24 Pcp, Unknown 03/18/17 documented as of this encounter Additional Source Comments The information contained in this document represents components of the legal health record. It is not the complete legal health record.[facility]
--- OUTSIDE RECORDS SUMMARY | 2024-11-10 09:53 | XMS_ITS | Encounter Summary ---
Author Organization [facility] Address [address] [place] [address] Phone Care Team Providers Care Lasting Floorworker Name Role Phone Pcp, Unknown Unavailable Unavailable Gordo Tafoya PA-C Primary Care Provider [phone] Encounter Details Date Type Department Care Team ([facility] Contact Info) Description 04/12/2024 Procedure Pass [facility] - [address] [place] [address] Social History Tobacco Use Types Packs/Day Years Used Date Smoking Tobacco: Every Day Cigarettes 1 30.2 Started: 08/27/1994 Smokeless Tobacco: Never Comments:Not a full pack a d ay at first for many many years it [...] high school, GED, job training, learning the Congolese language, technical skills, or developing parenting skills)? [...] Description 11/22/2024 1:00 PM EDT Office Visit [facility] Internal Medicine [address] [place] [address] Gordo Tafoya PA-C [address] [place] [address] 01/04/2025 9:40 AM EDT Office Visit [facility] Internal Medicine [address] [place] [address] Gordo Tafoya PA-C [address] [place] [address] documented as of this encounter Visit Diagnoses Not on filedocumented in this encounter Additional Health Concerns Infection Onset Date Last Indicated Resolved Time CoV-Risk 05/04/2024 05/04/2024 05/15/2024 1:21 AM EST Assessment Noted Time PHQ-9 Depression Total Score: 0 09/30/19 8:44 AM EDT PHQ-2 Depression Total Score: 0 09/30/19 8:44 AM EDT documented as of this encounter Care Teams Lasting Floorworker Relationship Specialty Start Date End Date Gordo Tafoya PA-C [address] [place] [address] PCP - General Physician Trimming Machine Set Up Operator 04/12/24 Pcp, Unknown 03/18/17 documented as of this encounter Additional Source Comments The information contained in this document represents components of the legal health record. It is not the complete legal health record.[facility]
--- OUTSIDE RECORDS SUMMARY | 2024-11-10 09:53 | XMS_ITS | Encounter Summary ---
Author Organization [facility] Address [address] [facility] [address] [place] [phone] Phone Care Team Providers Care Retail Asset Protection Specialist Name Role Phone Pcp, Unknown Unavailable Unavailable Gordo Tafoya PA-C Primary Care Provider [phone] Reason for Visit * Reason Onset Date Comments STD Testing 11/07/2024 Encounter Details Date Type Department Care Team (Late st Contact Info) Description 11/07/2024 Telephone [facility] Internal Medicine [address] [place], [place] [id number] Gordo Tafoya PA-C [address] [place], [place] [phone] [email or web address] STD Testing Social History Tobacco Use Types Packs/Day Years [...] high school, GED, job training, learning the [place]ian language, technical skills, or developing parenting skills)? [...] on file documented as of this encounter Progress Notes * Seema Dhillon RN - 11/07/2024 1:52 PM EDT Spoke to Sheyla and advised. She confirms she is asymptomatic. * Seema Dhillon RN - 11/07/2024 1:51 PM EDT Images from the original note were not included. Gordo Tafoya PA-C [facility] Mary MillerJust now (1:50 PM) JM Do you know if she happens to be asymptomatic? I will put the labs in but just wanted to make sure that she was asymptomatic * Seema Dhillon RN - 11/07/2024 1:12 PM EDT Gordo, does she need to be seen in office or can labs be ordered? * Seema Dhillon RN - 11/07/2024 1:11 PM EDT Images from the original note were not included. Sheyla Luz P [facility] Mary Patel (supporting Gordo Tafoya PA-C)48 minutes ago (12:23PM) Appointment Request From: Sheyla Luz With Provider: Gordo Tafoya PA-C [[facility]] Preferred Date Range: Any Preferred Times: Any Time Reason for visit: My and I are both sexually active with multiple partners and I would liketo check for std's just in case Health Maintenance Topic: Comments: We dont want to infect anyone and need peace of mind documented in this encounter Plan of Treatment Upcoming Encounters Date Type Department Care Team (Late st Contact Info) Description 11/22/2024 1:00 PM EDT Office Visit [facility] Internal Medicine [address] [place] [address] Gordo Tafoya PA-C [address] [place] [address] 01/04/2025 9:40 AM EDT Office Visit [facility] Internal Medicine [address] [place] [address] Gordo Tafoya PA-C [address] [place], [place] [phone] Scheduled Orders Name Type Priority Associated Diagnoses Orde r Schedule HSV type 1,2, antibody, IgG Microbiology Routine Screening examination for STI Expected: 11/07/2024, Expires: 11/07/2025 Chlamydia Trachomatis and Neisseria Gonorrhoeae Nucleic Acid Detection Microbiology Routine Screening examination for STI Expected: 11/07/2024, Expires: 11/07/2025 Syphilis antibody screen Lab Routine Screening examination for STI Expected: 11/07/2024, Expires: 11/07/2025 HIV-1/2 antigen/antibody Microbiology Routine Screening examination for STI Expected: 11/07/2024, Expires: 11/07/2025 documented as of this encounter Visit Diagnoses Diagnosis Screening examination for STI- Primary documented in this encounter Additional Health Concerns Assessment Noted Time PHQ-9 Depression Total Score: 0 09/30/19 25 8:44 AM EDT PHQ-2 Depression Total Score: 0 09/30/19 25 8:44 AM EDT documented as of this encounter Care Teams Retail Asset Protection Specialist Relationship Specialty Start Date End Date Gordo Tafoya PA-C [address] [place], [place] [phone] PCP - General Physician Plastics Spreading Machine Operator 04/12/24 Pcp, Unknown 03/18/17 documented as of this encounter Additional Source Comments The information contained in this document represents components of the legal health record. It is not the complete legal health record.[facility]
--- OUTSIDE RECORDS SUMMARY | 2024-11-10 09:53 | XMS_ITS | Clinical Summary ---
Author Organization [facility] Address [address] [place] [address] Care Team Providers Care Teacher Music Name Role Phone Unavailable Primary Care Provider Unavailabl e Social History Tobacco Use Types Packs/Day Years Used Date Smoking Tobacco: Never Assessed Comments Unknown Sex and Gender Information Value Date Recorded Sex Assigned at Not on file Legal Sex Female 1:42 PM EDT Gender Identity Not on file Sexual Orientation Not on file Plan of Treatment Health Maintenance Due Date Last Done Comments Hepatitis C Screening 1978 DTaP/Tdap/Td (1 - Tdap) 1996 Hep B (1 of 3 - 19+ 3-dose series) 1997 Pap Smear 08/31/2009 08/31/2006, 03/25/2005, 01/07/2005 Mammogram/Breast Imaging 2018 COVID-19 Vaccine (2023-2 5 season) 2023 Influenza (#1) 2024 Zoster (Shingrix) (1 of 2) 2028 HPV Vaccine (No Doses Required) Completed Hep A Aged Out No longer eligi ble based on patient's age to complete this topic Hib Aged Out No longer eligi ble based on patient's age to complete this topic Meningococcal ACWY Aged Out No longer eligible based on patient's age to complete this topic Pneumococcal Aged Out No longer eligi ble based on patient's age to complete this topic Procedures * Due to [place] [employer] law, this organization might not be sharing negative HIV tests. Procedure Name Priority Date/Time Associated Diagnosis Comments SUREPATH PAP REFLEX TO HPV Routine 08/31/2006 2:47 PM EDT from Last 3 Months or Most Recently Relevant to Health Maintenance Results * Due to [place] [employer] law, this organization might not be sharing negative HIV tests. * SUREPATH PAP REFLEX TO HPV (08/31/2006 2:47 PM EDT) PAP Smear SEE TEXT 09/07/2006 9:34 AM EDT [facility] Comment: SUREPATH SOURCE: CERVIX CLINICAL HISTORY: LMP: NOT GIVEN HX OF LSIL OR HIGHER PAP/BX HIGH RISK FACTOR FOR CERVICAL/VAGINAL CANCER PREVIOUS ABNORMAL CYTOLOGY ASCUS HPV- ADDITIONAL INFORMATION LPS 10/29/2005 IUD STATEMENT OF ADEQUACY: SATISFACTORY, ENDOCERVICAL/TRANSFORMATION ZONE COMPONENT IS PRESENT QUALITY INDICATORS: LACK OF PERTINENT HISTORY: LMP RESULT: NEGATIVE FOR INTRAEPITHELIAL LESION OR MALIGNANCY HPV DNA TEST: BASED ON THE CYTOLOGY RESULT, REFLEX HIGH/INTERMEDIATE RISK HPV DNA PROBE TESTING IS NOT PERFORMED. FOLLOW-UP CLINICALLY INDICATED. RESULT DATE: 09/06/2006 TECHNOLOGIST: PINKY/LIZZY GYNECOLOGICAL CYTOLOGY IS A SCREENING PROCEDURE SUBJECT TO BOTH FALSE NEGATIVE AND FALSE POSITIVE RESULTS. IT IS MOST RELIABLE WHEN A SATISFACTORY SAMPLE IS OBTAINED ON A REGULAR REPETITIVE BASIS. RESULTS MUST BE INTERPRETED IN THE CONTEXT OF HISTORIC AND CURRENT CLINICAL INFORMATION. 08/31/2006 2:47 PM EDT 08/31/2006 2:47 PM EDT Narrative [facility] - 09/07/2006 9:34 AM EDT Testing performed at: [facility], [address] [place] [address], [place], [address], Key Operator: ELIAZAR WISEMAN M.D., CLIA ID# [id number] Oly Short NP PATHOLOGY Final Result [facility] from Last 3 Months or Most Recently Relevant to Health Maintenance
--- OUTSIDE RECORDS SUMMARY | 2024-11-10 09:53 | XMS_ITS | Encounter Summary ---
Author Organization [facility] Address [address] [place] [address] Phone Care Team Providers Care Employee Wellness/Fitness Coordinator Name Role Phone Pcp, Unknown Unavailable Unavailable Gordo Tafoya PA-C Primary Care Provider [phone] Encounter Details Date Type Department Care Team (Late st Contact Info) Description 06/08/2024 Procedure Pass [facility] [address] [place] [address] Social History Tobacco Use Types Packs/Day Years [...] high school, GED, job training, learning the Eritrean language, technical skills, or developing parenting skills)? [...] your housing situation today? I have rachelle copopla 04/12/2024 How many times have you move [...] 11/22/2024 1:00 PM EDT Office Visit [facility] [address] [place] [address] Gordo Tafoya PA-C [address] [place] [address] 01/04/2025 9:40 AM EDT Office Visit [facility] Internal Medicine [address] [place] [address] Gordo Tafoya PA-C [address] [place] [address] documented as of this encounter Visit Diagnoses Not on filedocumented in this encounter Additional Health Concerns Assessment Noted Time PHQ-9 Depression Total Score: 20 025 8:38 AM EST PHQ-2 Depression Total Score: 6 04/12/19 25 8:38 AM EST documented as of this encounter Care Teams Employee Wellness/Fitness Coordinator Relationship Specialty Start Date End Date Gordo Tafoya PA-C [address] [place] [address] PCP - General Physician Program Director Scouting 04/12/24 Pcp, Unknown 03/18/17 documented as of this encounter Additional Source Comments The information contained in this document represents components of the legal health record. It is not the complete legal health record.[facility]
--- OUTSIDE RECORDS SUMMARY | 2024-11-10 09:53 | XMS_ITS | Encounter Summary ---
Author Organization [facility] Address [address] [facility] [address] [place] [address] Phone Care Team Providers Care Forest Fire Fighters Dispatcher Name Role Phone Pcp, Unknown Unavailable Unavailable Gordo Tafoya PA-C Primary Care Provider [phone] Reason for Visit * Reason Onset Date Comments Appointment 11/08/2024 Encounter Details Date Type Department Care Team (Late st Contact Info) Description 11/08/2024 Telephone [facility] [address] [place], [place] [phone] Gordo Tafoya PA-C [address] [place], [place] [id number] [email or web address] Appointment Social History Tobacco Use Types Packs/Day Years [...] high school, GED, job training, learning the Singaporean language, technical skills, or developing parenting skills)? [...] of this encounter Progress Notes * Seema Dhillon, RN - 11/08/2024 8:43 AM EDT Images from the original note were not included. Sheyla Luz P [facility] (supporting Gordo Tafoya PA-C)7 minutes ago (8:35 AM) Appointment Request From: Sheyla Luz With Provider: Gordo Tafoya PA-C [[facility] Internal Medicine] Preferred Date Range: 11/20/2024 - 11/24/2024 Preferred Times: Any Time Reason for visit: Chronic cough and intermittent increassing Labored breathing Health Maintenance Topic: Comments: I was diagnosed with asthma many years ago a few years later I was told the chronic cough was chronic bronchitis a few years later a nurse at [facility] in [place] ( i forgot who) toldme i also had copd i was wondering if there were tests for those i dont know if my symptoms warrantall three for a diagnosis i was hoping we could nail down exactly whatit is and discuss the best course of treatment i picked a quit date on smoking and im trying to cut down as much as possible documented in this encounter Plan of Treatment Upcoming Encounters Date Type Department Care Team (Late st Contact Info) Description 11/22/2024 1:00 PM EDT Office Visit [facility] Internal Medicine [address] [place] [address] Gordo Tafoya PA-C [address] [place] [address] [email or web address] 01/04/2025 9:40 AM EDT Office Visit [facility] Internal Medicine [address] [place] [address] Gordo Tafoya PA-C [address] [place] [address] documented as of this encounter Visit Diagnoses Not on filedocumented in this encounter Additional Health Concerns Assessment Noted Time PHQ-9 Depression Total Score: 0 09/30/19 8:44 AM EDT PHQ-2 Depression Total Score: 0 09/30/19 8:44 AM EDT documented as of this encounter Care Teams Forest Fire Fighters Dispatcher Relationship Specialty Start Date End Date Gordo Tafoya PA-C [address] [place] [address] [email or web address] PCP - General Physician Sugar House Supervisor 04/12/24 Pcp, Unknown 03/18/17 documented as of this encounter Additional Source Comments The information contained in this document represents components of the legal health record. It is not the complete legal health record.[facility]
--- OUTSIDE RECORDS SUMMARY | 2024-11-10 09:53 | XMS_ITS | Encounter Summary ---
Author Organization [facility], Address [address] [place] [address] Phone Care Team Providers Care Battery Charger Name Role Phone Gordo Tafoya PA-C Primary Care Provider [phone] Encounter Details Date Type Department Care Team (Late st Contact Info) Description 07/31/2024 Documentation Only [facility], [address] [place] [address] [place] [address] [place] [phone] Social History Tobacco Use Types Packs/Day Years Used Date Smoking Tobacco: Never Assessed Comments Unknown Sex and Gender Information Value Date Recorded Sex Assigned at Not on file Legal Sex Female 12:26 PM EDT Gender Identity Not on file Sexual Orientation Not on file documented as of this encounter Plan of Treatment Not on file documented as of this encounter Visit Diagnoses Not on filedocumented in this encounter Care Teams Battery Charger Relationship Specialty Start Date End Date Gordo Tafoya PA-C [address] [place] [address] PCP - General 07/31/24 documented as of this encounter
--- OUTSIDE RECORDS SUMMARY | 2024-11-10 09:53 | XMS_ITS | Encounter Summary ---
Author Organization [facility] Address [address] [place] [address] Phone Care Team Providers Care Health And Physical Education Teacher Name Role Phone Pcp, Unknown Unavailable Unavailable Gordo Tafoya PA-C Primary Care Provider [phone] Encounter Details Date Type Department Care Team (Late st Contact Info) Description 06/08/2024 Procedure Pass [facility]In[facility] Cardiology [address] [place] [address] Social History Tobacco Use Types Packs/Day Years [...] high school, GED, job training, learning the Faroese language, technical skills, or developing parenting skills)? [...] 1:00 PM EDT Office Visit [facility] Internal Medicine [address] [place] [address] Gordo Tafoya PA-C [address] [place] [address] 01/04/2025 9:40 AM EDT Office Visit [facility] Internal Medicine [address] [place] [address] Gordo Tafoya PA-C [address] [place] [address] documented as of this encounter Visit Diagnoses Not on filedocumented in this encounter Additional Health Concerns Assessment Noted Time PHQ-9 Depression Total Score: 22 025 6:09 PM EDT PHQ-2 Depression Total Score: 6 07/11/19 25 6:09 PM EDT documented as of this encounter Care Teams Health And Physical Education Teacher Relationship Specialty Start Date End Date Gordo Tafoya PA-C [address] [place] [address] PCP - General Physician Production Scheduler 04/12/24 Pcp, Unknown 03/18/17 documented as of this encounter Additional Source Comments The information contained in this document represents components of the legal health record. It is not the complete legal health record.[facility]
--- OUTSIDE RECORDS SUMMARY | 2024-11-10 09:53 | XMS_ITS | Clinical Summary ---
Author Organization [facility], Address [address] [address] Phone Care Team Providers Care Printing Press Operator Name Role Phone Gordo Tafoya PA-C Primary Care Provider [phone] Social History Tobacco Use Types Packs/Day Years Used Date Smoking Tobacco: Never Assessed Comments Unknown Sex and Gender Information Value Date Recorded Sex Assigned at Not on file Legal Sex Female 12:26 PM EDT Gender Identity Not on file Sexual Orientation Not on file Plan of Treatment Health Maintenance Due Date Last Done Comments Hepatitis B Vaccine (1 of 3 - 19+ 3-dose series) 1997 Pneumococcal Vaccine: Peds ( 0 to 5 Years) and At-Risk Patients (6 to 49 Years) (2 of 2 - PCV) 06/05/2011 06/04/2010 Influenza Vaccine (#1) 2024 , 2022, 02/17/2021, Additional history exists Insurance [facility] Medicare Care Teams Printing Press Operator Relationship Specialty Start Date End Date Gordo Tafoya PA-C [address] [place] [address] PCP - General 07/31/24
--- OUTSIDE RECORDS SUMMARY | 2024-11-10 09:53 | XMS_ITS | Encounter Summary ---
Author Organization [employer] [facility] Address [address] [place] [address] Phone Care Team Providers Care Deburring Machine Operator Name Role Phone Pcp, Unknown Unavailable Unavailable Gordo Tafoya PA-C Primary Care Provider [phone] Encounter Details Date Type Department Care Team (Late st Contact Info) Description 07/19/2024 Procedure Pass [facility] [address] [place] [address] Social History Tobacco Use Types Packs/Day Years [...] high school, GED, job training, learning the Norwegian language, technical skills, or developing parenting skills)? [...] 1:00 PM EDT Office Visit [facility] Internal Medicine [address] [place] [address] Gordo Tafoya PA-C [address] [place] [address] 01/04/2025 9:40 AM EDT Office Visit [facility] Internal Medicine [address] [place] [address] Gordo Tafoya PA-C [address] [place] [address] documented as of this encounter Visit Diagnoses Not on filedocumented in this encounter Additional Health Concerns Assessment Noted Time PHQ-9 Depression Total Score: 22 025 6:09 PM EDT PHQ-2 Depression Total Score: 6 07/11/19 25 6:09 PM EDT documented as of this encounter Care Teams Deburring Machine Operator Relationship Specialty Start Date End Date Gordo Tafoya PA-C [address] [place] [address] PCP - General Physician Pre Sales Technical Engineer 04/12/24 Pcp, Unknown 03/18/17 documented as of this encounter Additional Source Comments The information contained in this document represents components of the legal health record. It is not the complete legal health record.[facility]
== END 2024-11-10 09:45 | disposition home or self-care (01) ==
LOC: HO.HNS 09:01
PROVIDERS: PCP Physician Assistant Surgical; Referring Provider Physician Assistant Surgical; Visit Provider Physician Assistant
DX: M50.90 Cervical disc disorder, unspecified, unspecified cervical region (principal)
CPT/HCPCS: 99204

== ENCOUNTER → 2024-11-10 09:00 | Outpatient (BNVA) | payer MEDICARE, MEDICAID, SELFPAY | PROVIDERS: PCP Physician Assistant Surgical; Referring Provider Physician Assistant Surgical; Visit Provider Physician Assistant | DX: M50.90 Cervical disc disorder, unspecified, unspecified cervical region (principal); F17.210 Nicotine dependence, cigarettes, uncomplicated | CPT/HCPCS: 99202 ==

== ENCOUNTER 2025-01-26 09:23 | Outpatient (AMB) | payer MEDICARE, MEDICAID, SELFPAY ==
--- NOTE | 2025-01-26 09:26 | A.OFFVIS_ITS ---
Vital Signs 3 01/26/25 09:33 Height 5 ft 7 in Weight 200 lb BMI 31.3 BP 119/71 Blood Pressure Location Rt brachial Position Sitting Pulse 90 Pulse Source Pulse Oximeter Pulse Oximetry (%) 97 Oxygen Delivery Method Room Air Intake Visit Reasons: CERVICAL DISC DISORDER Intake Note: Pain today 10/22 Airport Shuttle Driver Required: No Accompanied by: Self / Same As Patient Allergies Latex, Natural Rubber Allergy (Severe, Verified 01/26/25 09:31) Swelling meperidine (From Demerol) Allergy (Severe, Verified 01/26/25 09:31) Swelling quetiapine (From Seroquel) Allergy (Severe, Verified 01/26/25 09:31) Swelling HPI Comments Details: The patient is a 44-year-old female presenting with chronic neck pain. The neck pain has been persistent for many years and is associated with scoliosis and cervical degenerative disc disease, primarily at C3-4 and C4-5 with moderate spinal and bilateral foraminal stenosis and C4-C5 severe bilateral foraminal stenosis. There is also disc herniation with moderate spinal and foraminal stensosis at C5-C6 level. The pain radiates from the posterior neck to the back of the head and down into the shoulders, sometimes accompanied by tingling in the arms. The patient reports that the pain is localized to the neck and arms, with a history of scoliosis since . She attempted physical therapy once but found it too painful to continue, resulting in bed rest for five days. She has not undergone any spine injections or procedures and was advised by Neurosurgeons at [facility] to pursue physical therapy and therapeutic injections before considering surgical options. Patient was also seen earlier this year by Dr. Leary at [facility] for left sided radiculopathy and was advised to start physical therapy. The patient also experiences low back pain that radiates to her legs when walking, and she has a history of anxiety, depression, and bipolar disorder, for which she takes medication. She smokes a pack of cigarettes daily and has a history of substance abuse, including drugs and alcohol, but has been sober for 13 years. She has been using gabapentin, baclofen, and naproxen for pain management. - Onset: Chronic, persistent for many years - Quality: Described as shooting, flashing, jumping, stabbing, sharp, pulling, tingling, numbness, hurting, aching, heavy - Location: Posterior neck radiating to the back of the head and shoulders - Radiation: To the arms, sometimes with tingling - Exacerbating factors: Physical therapy, certain movements - Relieving factors: None explicitly mentioned - Interference: Affects sleep, daily activities, and requires use of a cane at times - Affect: Pain impacts mood and psychological wellbeing, contributing to anxiety and depression - Analgesia: Current medications include gabapentin, baclofen, lidocaine patches, and naproxen; pain level ranges from 3/10 in the morning to 9/10 by the end of the day - Adverse Effects: None reported - Activities of Daily Living: Pain affects sleep, mobility, and self-care activities - Aberrant Drug Related Behaviors: History of substance abuse, but currently sober for 13 years Oswestry Neck Pain Disability Index Score=29 [facility] Medical History (Updated 01/28/25 @ 21:41 by RAMIREZ Casillas) Chronic left-sided low back pain without sciatica Hydroureteronephrosis Constipation No natural teeth Scoliosis Mixed hyperlipidemia Major depressive disorder Learning disability Left knee pain Generalized anxiety disorder Bipolar disorder Asthma Arthritis Social History (Updated 01/26/25 @ 09:36 by Charmaine Beasley) Alcohol intake: current Alcohol intake frequency: holidays/special occasions only Tobacco use type: Cigarette Cigarette Packs Per Day: 1 Substance Use Type: Marijuana Substance Use Frequency: Daily Review of Systems Const Details: - Musculoskeletal: Reports chronic neck pain, low back pain radiating to legs, tingling in arms - Neurological: Reports numbness and tingling in arms, denies muscle spasms - Psychiatric: Reports anxiety, depression, bipolar disorder - Respiratory: Denies significant alcohol use, reports smoking one pack per day All systems reviewed & are unremarkable except as noted in HPI and below Physical Exam Vital Signs: Last Vital Signs Pulse 90 01/26/25 09:33 BP 119/71 01/26/25 09:33 Pulse Ox 97 01/26/25 09:33 Oxygen Delivery Method Room Air 01/26/25 09:33 BMI result Body Mass Index 31.3 General: Appears afebrile. Alert and oriented. Mood and affect appropriate. Follows and participates in conversation appropriately. Respiratory effort is unlabored. No cough. Able to transition from sit to stand unassisted. Ambulates with bilaterally normal heel strike and toe off. Neck Other: Patient with decreased cervical ROM in all planes/especially with left lateral rotation. Reports increased pain with cervical extension and flexion. Spurling compression test equivocal. Pain is unchanged by Spurling maneuver with retraction. Elvey's tension test positive on the left, with radiation of pain from neck to wrist. Lhermitte's test was negative. DTR intact, +2 right and +1 left and symmetrical. Patient demonstrated 5/5 motor strength of bilateral upper extremities. 2 + radial pulses. Significant tightness throughout left upper trapezius as well as TTP throughout bilateral upper and lowertrapezius muscles. No paravertebral tenderness over facet joints bilaterally. Neck: Yes normal visual inspection, Yes no lymphadenopathy, Yes supple, No anterior neck swelling, Yes no JVD, No prominent supraclavicular fat pad and Yes prominent dorsocervical fat pad Back/Spine/Pelvis Cervical Spine: loss of normal cervical lordosis, cervical muscular tenderness, pain with cervical ROM, cervical spasm and No Cervical spine tenderness Thoracic/Lumbar Spine: thoracic and lumbar spine normal to inspection, pain with thoraco-lumbar ROM, thoraco-lumbar ROM limited, No thoracic spinal tenderness and No lumbar spinal tenderness Results Reviewed Results Reviewed: Assessment & Plan Assessment & Plan (1) Cervical disc disorder: Code(s): M50.90 - Cervical disc disorder, unspecified, unspecified cervical region Category: Medical (2) Scoliosis: Code(s): M41.9 - Scoliosis, unspecified Category: Medical (3) Cervical spondylosis: Code(s): M47.812 - Spondylosis without myelopathy or radiculopathy, cervical region Category: Medical (4) Cervical radiculopathy: Code(s): M54.12 - Radiculopathy, cervical region Category: Medical (5) Cervical spinal stenosis: Code(s): M48.02 - Spinal stenosis, cervical region Category: Medical Plan The plan for managing the patient's chronic neck pain includes initiating physical therapy, as recommended by the Neurosurgeons, to be completed before considering any surgical interventions. In meantime, we will schedule Interlaminar C5-C6 JESSICA with local and fluoroscopy for radicular pain. Expectations, risks and benefits were reviewed. Patient is aware she will be contacted to schedule this procedure. The patient is advised to continue with her current medication regimen, including gabapentin, baclofen, and naproxen. We also discussed diagnostic injections for potential radiofrequency ablation may be considered if physical therapy does not provide sufficient relief for axial cervical pain. All questions and concerns have been answered and patient agreed with the treatment plan. Follow up after injection and sooner as needed. Patient was informed and verbally consented to the use of an ambient scribe for clinic note documentation during this visit. Orders: Orders 2 PT Evaluation and Treatment 01/26/25 M41.9 - Scoliosis, unspecified, M47.812 - Spondylosis without myelopathy or radiculopathy, cervical region, M50.90 - Cervical disc disorder, unspecified, unspecified cervical region, M54.12 - Radiculopathy, cervical region Coding Level of Care Code New Pt Level 4 (18437) Diagnoses Cervical disc disorder M50.90 Scoliosis M41.9 Cervical spondylosis M47.812 Cervical radiculopathy M54.12 Cervical spinal stenosis M48.02
[2025-01-26 09:33] VITALS: BP 119/71; PULSE 90; O2SAT 97; BMI 31.3
--- OUTSIDE RECORDS SUMMARY | 2025-01-26 10:12 | XMS_ITS | Encounter Summary ---
Author Organization [facility] Address [address] [place] [address] Phone Care Team Providers Care Counterperson Name Role Phone Pcp, Unknown Unavailable Unavailable Gordo Tafoya PA-C Primary Care Provider [phone] Encounter Details Date Type Department Care Team (Late st Contact Info) Description 06/20/2024 Procedure Pass [facility], [facility] [address] [place] [address] Social History Tobacco Use Types Packs/Day Years Used Date Smoking Tobacco: Every Day Cigarettes 1 37.9 Started: 1989 Smokeless Tobacco: Never Alcohol Use [...] high school, GED, job training, learning the Lao language, technical skills, or developing parenting skills)? [...] Team (Late st Contact Info) Description 11/22/2024 Procedure Pass [facility], Ct Scan - [address] [address] 01/30/2025 9:30 AM EST Appointment [facility], [facility] [address] [place] [address] Gordo Tafoya PA-C [address] [place] [address] 02/27/2025 9:30 AM EST Appointment [facility] [address] [place] [address] Gordo Tafoya PA-C [address] [place] [address] 03/05/2025 9:40 AM EST Office Visit [facility] Internal Medicine [address] [place] [address] Gordo Tafoya PA-C 40 [place] [address] documented as of this encounter Visit Diagnoses Not on filedocumented in this encounter Additional Health Concerns Assessment Noted Time PHQ-9 Depression Total Score: 22 025 6:09 PM EDT PHQ-2 Depression Total Score: 6 07/11/19 25 6:09 PM EDT documented as of this encounter Care Teams Counterperson Relationship Specialty Start Date End Date Gordo Tafoya PA-C [address] [place] [address] [email or web address] PCP - General Physician Farm Worker 04/12/24 Pcp, Unknown 03/18/17 documented as of this encounter Additional Source Comments The information contained in this document represents components of the legal health record. It is not the complete legal health record.[facility]
--- OUTSIDE RECORDS SUMMARY | 2025-01-26 10:12 | XMS_ITS | Encounter Summary ---
Author Organization [employer] [facility] Address [address] [place] [address] Phone Care Team Providers Care Director Enterprise Sales Name Role Phone Pcp, Unknown Unavailable Unavailable Gordo Tafoya PA-C Primary Care Provider [phone] Encounter Details Date Type Department Care Team (Late st Contact Info) Description 06/08/2024 Procedure Pass [facility], Ct Scan - [facility] [address] [place] [address] Social History Tobacco Use Types Packs/Day Years [...] high school, GED, job training, learning the Guatemalan language, technical skills, or developing parenting skills)? [...] st Contact Info) Description 11/22/2024 Procedure Pass [facility], Ct Scan - [address] [address] 01/30/2025 9:30 AM EST Appointment [facility], Ct Scan - [facility] [address] [place] [address] Gordo Tafoya PA-C [address] [place] [address] 02/27/2025 9:30 AM EST Appointment [facility] [address] [place] [address] Gordo Tafoya PA-C [address] [place] [address] 03/05/2025 9:40 AM EST Office Visit [facility] Internal Medicine [address] [place] [address] Gordo Tafoya PA-C [address] [place] [address] [email or web address] documented as of this encounter Visit Diagnoses Not on filedocumented in this encounter Additional Health Concerns Assessment Noted Time PHQ-9 Depression Total Score: 20 025 8:38 AM EST PHQ-2 Depression Total Score: 6 04/12/19 25 8:38 AM EST documented as of this encounter Care Teams Director Enterprise Sales Relationship Specialty Start Date End Date Gordo Tafoya PA-C [address] [place] [address] [email or web address] PCP - General Physician Accounting System Expert 04/12/24 Pcp, Unknown 03/18/17 documented as of this encounter Additional Source Comments The information contained in this document represents components of the legal health record. It is not the complete legal health record.[facility]
--- OUTSIDE RECORDS SUMMARY | 2025-01-26 10:12 | XMS_ITS | Encounter Summary ---
Author Organization [employer] [facility] Address [address] [place] [address] Phone Care Team Providers Care Business Management Manager Name Role Phone Pcp, Unknown Unavailable Unavailable Gordo Tafoya PA-C Primary Care Provider [phone] Encounter Details Date Type Department Care Team (Late st Contact Info) Description 06/08/2024 Procedure Pass [facility] [address] [place] [address] Social History Tobacco Use Types Packs/Day Years [...] high school, GED, job training, learning the Bhutanese language, technical skills, or developing parenting skills)? [...] st Contact Info) Description 11/22/2024 Procedure Pass [facility], Ct Scan - [address] [address] 01/30/2025 9:30 AM EST Appointment [facility], Ct Scan - [facility] [address] [place] [address] Gordo Tafoya PA-C 40 [place] [address] 02/27/2025 9:30 AM EST Appointment [facility] [address] [place] [address] Gordo Tafoya PA-C [address] [place] [address] 03/05/2025 9:40 AM EST Office Visit [facility] Internal Medicine [address] [place] [address] Gordo Tafoya PA-C [address] [place] [address] documented as of this encounter Visit Diagnoses Not on filedocumented in this encounter Additional Health Concerns Assessment Noted Time PHQ-9 Depression Total Score: 20 025 8:38 AM EST PHQ-2 Depression Total Score: 6 04/12/19 25 8:38 AM EST documented as of this encounter Care Teams Business Management Manager Relationship Specialty Start Date End Date Gordo Tafoya PA-C [address] [place] [address] PCP - General Physician Log Haul Chain Feeder 04/12/24 Pcp, Unknown 03/18/17 documented as of this encounter Additional Source Comments The information contained in this document represents components of the legal health record. It is not the complete legal health record.[facility]
--- OUTSIDE RECORDS SUMMARY | 2025-01-26 10:12 | XMS_ITS | Encounter Summary ---
Author Organization [employer] [facility] Address [address] [place] [address] Phone Care Team Providers Care Fiberglass Machine Operator Name Role Phone Pcp, Unknown Unavailable Unavailable Gordo Tafoya PA-C Primary Care Provider [phone] Encounter Details Date Type Department Care Team (Late st Contact Info) Description 08/17/2024 Procedure Pass [facility], Ct Scan - [facility] [address] [place] [address] Social History Tobacco Use Types Packs/Day Years [...] st Contact Info) Description 11/22/2024 Procedure Pass [facility], Ct Scan - [address] [address] 01/30/2025 9:30 AM EST Appointment [facility], Ct Scan - [facility] [address] [place] [address] Gordo Tafoya PA-C [address] [place] [address] 02/27/2025 9:30 AM EST Appointment [facility] [address] [place] [address] Gordo Tafoya PA-C [address] [place] [address] 03/05/2025 9:40 AM EST Office Visit [facility] Internal Medicine 40 [place] [address] Gordo Tafoya PA-C [address] [place] [address] documented as of this encounter Visit Diagnoses Not on filedocumented in this encounter Additional Health Concerns Assessment Noted Time PHQ-9 Depression Total Score: 10 025 12:44 PM EDT PHQ-2 Depression Total Score: 3 08/19/19 25 12:44 PM EDT documented as of this encounter Care Teams Fiberglass Machine Operator Relationship Specialty Start Date End Date Gordo Tafoya PA-C [address] [place] [address] PCP - General Physician Senior Oracle Database Developer 04/12/24 Pcp, Unknown 03/18/17 documented as of this encounter Additional Source Comments The information contained in this document represents components of the legal health record. It is not the complete legal health record.[facility]
--- OUTSIDE RECORDS SUMMARY | 2025-01-26 10:13 | XMS_ITS | Encounter Summary ---
Author Organization [employer] [facility] Address [address] [place] [address] Phone Care Team Providers Care Felt Finisher Name Role Phone Pcp, Unknown Unavailable Unavailable Gordo Tafoya PA-C Primary Care Provider [phone] Encounter Details Date Type Department Care Team ([facility] Contact Info) Description 04/12/2024 Procedure Pass [facility] - [address] [place] [address] Social History Tobacco Use Types Packs/Day Years Used Date Smoking Tobacco: Every Day Cigarettes 1 30.4 Started: 08/27/1994 Smokeless Tobacco: Never Comments:Not a [...] high school, GED, job training, learning the Panamanian language, technical skills, or developing parenting skills)? [...] st Contact Info) Description 11/22/2024 Procedure Pass [facility], Ct Scan - [address] [address] 01/30/2025 9:30 AM EST Appointment [facility], Ct Scan - [address] [address] Gordo Tafoya PA-C [address] [place] [address] 02/27/2025 9:30 AM EST Appointment [facility] [address] [place] [address] Gordo Tafoya PA-C [address] [place] [address] 03/05/2025 9:40 AM EST Office Visit [facility] Internal Medicine [address] [place] [address] Gordo Tafoya PA-C 40 [place] [address] documented as of this encounter Visit Diagnoses Not on filedocumented in this encounter Additional Health Concerns Infection Onset Date Last Indicated Resolved Time CoV-Risk 05/04/2024 05/04/2024 05/15/2024 1:21 AM EST Assessment Noted Time PHQ-9 Depression Total Score: 0 09/30/19 8:44 AM EDT PHQ-2 Depression Total Score: 0 09/30/19 8:44 AM EDT documented as of this encounter Care Teams Felt Finisher Relationship Specialty Start Date End Date Gordo Tafoya PA-C [address] [place] [address] PCP - General Physician Nurse Outreach Case Manager 04/12/24 Pcp, Unknown 03/18/17 documented as of this encounter Additional Source Comments The information contained in this document represents components of the legal health record. It is not the complete legal health record.[facility]
--- OUTSIDE RECORDS SUMMARY | 2025-01-26 10:13 | XMS_ITS | Encounter Summary ---
Author Organization [facility] Address [address] [place] [address] Phone Care Team Providers Care Swaging Machine Adjuster Name Role Phone Pcp, Unknown Unavailable Unavailable Gordo Tafoya PA-C Primary Care Provider [phone] Encounter Details Date Type Department Care Team (Late st Contact Info) Description 06/08/2024 Procedure Pass [facility] [address] [place] [address] Social History Tobacco Use Types Packs/Day Years [...] high school, GED, job training, learning the Chinese language, technical skills, or developing parenting skills)? [...] st Contact Info) Description 11/22/2024 Procedure Pass [facility], Ct Scan - [address] [address] 01/30/2025 9:30 AM EST Appointment [facility], Ct Scan - [facility] [address] [place] [address] Gordo Tafoya PA-C [address] [place] [address] [email or web address] 02/27/2025 9:30 AM EST Appointment [facility] [address] [place] [address] Gordo Tafoya PA-C [address] [place] [address] 03/05/2025 9:40 AM EST Office Visit [facility] Internal Medicine [address] [place] [address] Gordo Tafoya PA-C [address] [place] [address] [email or web address] documented as of this encounter Visit Diagnoses Not on filedocumented in this encounter Additional Health Concerns Assessment Noted Time PHQ-9 Depression Total Score: 22 025 6:09 PM EDT PHQ-2 Depression Total Score: 6 07/11/19 25 6:09 PM EDT documented as of this encounter Care Teams Swaging Machine Adjuster Relationship Specialty Start Date End Date Gordo Tafoya PA-C [address] [place] [address] PCP - General Physician Night Shift 04/12/24 Pcp, Unknown 03/18/17 documented as of this encounter Additional Source Comments The information contained in this document represents components of the legal health record. It is not the complete legal health record.[facility]
--- OUTSIDE RECORDS SUMMARY | 2025-01-26 10:13 | XMS_ITS | Clinical Summary ---
Author Organization [facility] Address [address] [place] [address] Phone Care Team Providers Care Retirement Actuary Name Role Phone Pcp, Unknown Unavailable Unavailable Gordo Tafoya PA-C Primary Care Provider [phone] Allergies Active Allergy Reactions Criticality Noted Date [...] nightly at bedtime. 30 tablet 4 Active prazosin (MINIPRESS) 1 MG capsule Take 1 [...] (pain). 60 tablet 2 5 Active naproxen sod/diphenhydra mine (ALEVE PM ORAL) Take 1 tablet by mouth nightly at bedtime. Active EPINEPHrine 0.3 mg/0.3 mL auto-injector Inject [...] 9AM AND 5PM 180 tablet 5 Active baclofen (LIORESAL) 5 mg tablet Take 1 tablet (5 mg total) by mouth 3 (three) times a day as needed for spasm. 15 tablet 5 Active divalproex (DEPAKOTE) [address] tablet Take 250 mg by mouth every morning. 5 Active escitalopram oxalate (LEXAPRO) 20 MG tablet Take 20 mg by mouth daily. 2 10/26/19 22 Discontinu ed(Error) Active Problems Problem Noted Date Diagnosed Date Persistent cough 11/22/2024 Acute otitis externa of right ear 11/22/2024 Acute otitis media 09/29/2024 Assessment & Plan [...] patient wanted to have this done at [facility] however she pushed off the appointment and [...] canal narrowing. She is scheduled to see [facility] physical therapy in the next week or 2. I have advised her to continue this. I advised her to continue taking [id number] medications. -Referral to [facility] for possible cortisone injections [...] insurance may not be covering this particular marketing traffic manager therefore she was advised to look into [...] changes who had been seen by the lumber salvager and a change in her prescription had [...] therefore she had also been sent to [facility] however patient did not [...] underwent a CT at the recommendation of [facility] looking for other causes of her insomnia/daytime [...] a biopsy therefore we will refer to [facility] oral surgeons Bipolar disorder 04/12/2024 Assessment [...] recently hospitalized for 9 days on at [facility] for a manic phase. She mentions [...] p.o. twice daily -Patient follows psychiatry through [facility] last appointment was last week. -Follow with [...] paper. I will have referred her to [facility] GI for further evaluation and colonoscopy [...] Assessment & Plan (04/12/2024 12:58 PM EST): AIRFRAME AND POWER PLANT MECHANIC referral [facility] Encounters Date Type Department Care Team Description 01/09/2025 Telephone [facility] Internal Medicine [address] [place] [address] Gordo Tafoya PA-C Forms & Paperwork (Medical necessity, feet device) 12/29/2024 Telephone [facility] Internal Medicine [address] [place] [address] Gordo Tafoya PA-C PT1 [facility] 12/27/2024 Telephone [facility] Internal Medicine [address] [place] [address] Kristine Larkin RN Eye Problem 12/15/2024 Telephone [facility] Internal Medicine [address] [place] [address] Gordo Tafoya PA-C PT1 12/07/2024 8:01 AM EDT - 12/07/2024 11:59 PM EDT Hospital Encounter [facility] PFT Lab [address] [place] [address] Gordo Tafoya PA-C Discharge Disposition: Home or Self Care 12/07/2024 Transcribe Orders [facility] PFT Lab [address] [place] [address] Gordo Tafoya PA-C 12/07/2024 Transcribe Orders [facility] PFT Lab [address] [place] [address] Gordo Tafoya PA-C Persistent cough (Primary Dx) 12/05/2024 11:00 AM EDT Telemedicine [facility] [address] [place] [address] Sun Montesinos CNP Eye swelling, left (Primary Dx) 12/05/2024 Telephone [facility] Internal Medicine [address] [place] [address] Gordo Tafoya PA-C Appointment 11/25/2024 Nurse Triage [facility] [address] [address] Sandra Roberts RN Medication Reaction (After hours call ) 11/22/2024 1:00 PM EDT Office Visit [facility] Internal Medicine [address] [place] [address] Gordo Tafoya PA-C Persistent cough (Primary Dx); Acute otitis externa of right ear, unspecified type 11/09/2024 Refill [facility] Internal Medicine [address] [place] [address] Gordo Tafoya PA-C Medication Refill 11/08/2024 Telephone [facility] Internal [facility] [address] [place] [address] Gordo Tafoya PA-C Appointment 11/07/2024 Telephone [facility] Internal Medicine [address] [place] [address] Gordo Tafoya PA-C STD Testing 10/30/2024 9:45 AM EDT - 10/30/2024 11:59 PM EDT Hospital Encounter [address] [place] [address] Gordo Tafoya PA-C Discharge Disposition: Home or Self Care 10/30/2024 Ancillary Orders [facility],Outside Imaging [address] [place] [address] Unknown, Unknown, 10/30/2024 Ancillary Orders [facility]Outside Imaging [address] [place] [address] Unknown, Christa, 10/30/2024 Ancillary Orders [facility],Outside Imaging [address] [place] [address] Unknown, Unknown, 10/30/2024 Ancillary Orders [facility],Outside Imaging [address] [place] [address] Unknown, Unknown, 10/30/2024 Ancillary Orders [facility],Outside Imaging [address] [place] [address] Unknown, Unknown, 04/12/2024 Procedure Pass [address] [place] [address] from Last 3 Months Immunizations Immunization Administration Dates Next Due INFLUENZA, SPLIT VIRUS, TRIVALENT PF 02/15/2024 Influenza Quadrivalent MDCK Preservative Free IM 2022 Influenza Quadrivalent Preservative Free IM 08/2020,02/07/2020 Pneumococcal conjugate PCV20 01/31/2023 Pneumococcal polysaccharide [...] 1 30.4 Started: 08/27/1994 Smokeless Tobacco: Never Tobacco Cessation:Ready [...] high school, GED, job training, learning the Burkinan language, technical skills, or developing parenting skills)? [...] Sign Reading Time Taken Comments Blood Pressure 112/70 11/22/2024 1:04 PM EDT Pulse 85 11/22/2024 1:04 PM EDT Temperature 36.5 C (97.7 F) 05/23/2024 10:41 AM EDT Respiratory Rate 18 11/22/2024 1:04 PM EDT Oxygen Saturation 98% 11/22/2024 1:04 PM EDT Inhaled Oxygen Concentration - - Weight 91.4 kg (201 lb 9.6 oz) 11/22/2024 1:04 P M EDT Height 170.2 cm (5' 7.01 ) 11/22/2024 1:04 PM E DT Body Mass Index 31.57 11/22/2024 1:04 PM EDT Plan of Treatment Upcoming Encounters Date Type Department Care Team (Late st Contact Info) Description 11/22/2024 Procedure Pass [facility], Ct [address] [address] 01/30/2025 9:30 AM EST Appointment [address] [address] Gordo Tafoya PA-C [address] [place] [address] 02/27/2025 9:30 AM EST Appointment [facility] PFT Lab [address] [place] [address] Gordo Tafoya PA-C [address] [place] [address] 03/05/2025 9:40 AM EST Office Visit [facility] Internal Medicine [address] [place] [address] Gordo Tafoya PA-C [address] [place] [address] Health Maintenance Due Date Last Done Comments COLOGUARD 2023 COLONOSCOPY 2023 COLORECTAL CANCER SCREENING 2023 FIT TEST 2023 FOBT 2023 SIGMOIDOSCOPY 2023 VIRTUAL COLONOSCOPY 2023 INFLUENZA VACCINE (#1) 2024 , 2022, 02/17/2021, Additional history exists COVID-19 VACCINE ( season) 2024 01/31/2023, 2022, 11/18/2021, Additional history exists VALPROIC ACID (DEPAKENE) LEVEL 02/11/2025 02/12/2024 Adult Td,Tdap Booster 06/24/2025 06/25/2015, 008 HIV ONE-TIME SCREENING (18-65 YEARS) 07/27/2025 Postponed from 1996 (Patient Declines / Guardian Declines) DEPRESSION SCREENING 09/29/2025 09/29/2024, 09/30/19 SMOKING Hx and SMOKELESS TOBACCO SCREENING 11/22/2025 11/22/2024 MAMMOGRAM 10/30/2026 10/30/2024, 12/13, 12/30/2020, Additional history [...] on patient's age to complete this topic IPV VACCINES Aged Out No longer eligi ble based on patient's age to complete this topic MENINGOCOCCAL VACCINES (ACWY) Aged Out No longer eligible based on patient's age to complete this topic MENINGOCOCCAL VACCINES (B) Aged Out N o longer eligible based on patient's age to complete this topic Medical Devices Not on file Procedures Procedure Name Priority Date/Time Associated Diagnosis Comments PULMONARY FUNCTION TEST Routine 12/07/2024 8:52 AM EDT Persistent cough BI MAMMOGRAM SCREENING WITH TOMOSYNTHESIS WITH CAD (BILATERAL) Routine 10/30/2024 10:15 AM EDT Breast cancer screening by mammogram LIPID PANEL Routine 05/04/2024 8:36 AM EST Annual physical exam VALPROIC ACID Timed 02/12/2024 6:50 AM EST PAP TEST Routine 04/10/2022 8:23 AM EST OUTSIDE HEPATITIS C VIRUS SCREENING Routine 07/09/2021 from Last 3 Months or Most Recently Relevant to Health Maintenance Results * Pulmonary Function Test Reason for Exam: COPD; Type of PFT Test: Spirometry with bronchodilator; Performing Location: [facility] (12/07/2024 8:52 AM EDT) FEV1 2.67 liters FVC 3.69 liters FEV1/FVC 72 % TLC DLCO Anatomical Region Laterality Modality Other Impressions 12/07/2024 8:52 AM EDT PULMONARY FUNCTION STUDIES Spirometry measurements were performed on this 44 y.o. year-old female for evaluation of cough. Review of the medical record reveals that the patient is a current smoker. Prior pulmonary function studies are not available for comparison. SPIROMETRY: The FEV1 is normal at 2.67 L or 88% predicted. The FVC is normal at 3.69 L or 99% predicted. The FEV1/FVC ratio is normal at 72%. After the administration of a bronchodilator agent, there is a significant 13% improvement in FEV1 (>10% relative to the predicted value). FLOW-VOLUME LOOPS: Evaluation of the flow-volume loops reveals normal morphology of both the inspiratory and expiratory limbs. Resting oxygen saturation is 97% on room air. IMPRESSION: Normal spirometry measurements, however a technically significant 13% postbronchodilator improvement in FEV1 is noted. Technical Note: As of 01/25/2024, the [facility] Pulmonary Function Testing (PFT) Laboratory transitioned from using race-specific to using race-neutral equations for determining lung function predicted values for all persons. Due to this change some individuals previously classified as either normal or abnormal may now change from one to the other category without a true change in lung function. Such changes, as well as changes in severity classification, should be considered broadly and in their clinical context. Absolute values of lung function are unaffected. For further questions please contact the interpreting physician or PFT technical laboratory asst. For further discussion of this issue please see [facility] 2022;[phone]([id number]. Please Note: Not all PFT labs within, or outside of, our system will be transitioning to new reference equations at the same time. For this reason, please pay close attention to absolute values when comparing results done at different testing locations within or outside of our system. us Gordo Tafoya PA-C PFT ORDERABLES Final Result * BI MAMMOGRAM SCREENING WITH TOMOSYNTHESIS WITH [...] PA-C IMG MG EXAMS Final Result * Lipid panel (05/04/2024 8:36 AM EST) HDL 44 mg/dL [facility] Comment: Interpretation <40 mg/dL: Low HDL cholesterol (major risk factor for CHD) Greater than or equal to 60 mg/dL: High HDL cholesterol ( negative risk factor for CHD) HDL - cholesterol is affected by a number of factors, e.g. smoking, excerise, hormones, sex and age. CHOLESTEROL 182 0 - 240 mg/dL [facility] TRIGLYCERIDES 116 30 - 160 mg/dL [facility] LDL 115 50 - 129 mg/dL [facility] Comment: LDL levels in terms of risk for coronary heart disease: <100 mg/dL: Optimal 100-129 mg/dL: Near or above optimal 130-159 mg/dL: Borderline high 160-189 mg/dL: High >190 mg/dL: Very High CARDIAC RISK RATIO 4.1 3.3 - 4.4 C [facility] Blood 05/04/2024 8:36 AM EST 05/04/2024 8:38 AM EST us Gordo Tafoya PA-C LAB BLOOD BKR ORDERABLES Marnie l Result Performing Organization Address City/[facility]/ZIP Co de Phone Number [address] [address] * Valproic acid (02/12/2024 6:50 AM EST) VALPROIC ACID 68.5 50.0 - 100.0 ug/mL [facility] Blood 02/12/2024 6:50 AM EST 02/12/2024 6:59 AM EST Britni Doshi MD LAB BLOOD BKR ORDERABLE S Final Result Performing Organization Address City/[facility]/ZIP Co de Phone Number [address] [address] * Pap Test (04/10/2022 8:23 AM EST) Result - External See Scanned Results Impressions Lida Gentile, PHILIP - 04/10/2022 8:23 AM EST NILM, HPV neg us Historical Provider CYTOLOGY ORDERABLES Edite d Result - Final * Outside Hepatitis C Virus Screening (07/09/2021) Hepatitis C Screening - External Neg us Historical Provider LAB BLOOD ORDERABLES Marnie l Result from Last 3 Months or Most Recently Relevant to Health Maintenance Insurance MEDICARE PART A & B [facility] MEDICARE REPLACEMENT MEDICARE PART A & [facility] REPLAC[facility] MEDICARE PART A & B [facility] MEDIC[facility]PLACEMENT MEDICARE PART A & B [facility] MEDICARE REPLACEMENT MEDICARE PART A & B [facility] MEDICARE REPLACEMENT MEDICARE PART A & B [facility] MEDICARE REPLACEMENT Advance Directives For more information, please contact: [phone] (9AM - 5PM [facility], Wednesday-Wednesday) * Full Code (Latest Code Status on File) Date Activated Date Inactivated Comments 02/06/2024 3:55 PM Question Answer Comments Code Status Confirmed With: Patient Care Teams Retirement Actuary Relationship Specialty Start Date End Date Gordo Tafoya PA-C [address] [place] [address] PCP - General Physician Chief Of Staff 04/12/24 Pcp, Unknown 03/18/17 Additional Source Comments The information contained in this document represents components of the legal health record. It is not the complete legal health record.[facility]
--- OUTSIDE RECORDS SUMMARY | 2025-01-26 10:13 | XMS_ITS | Encounter Summary ---
Author Organization [facility] Address [address] [place] [address] Phone Care Team Providers Care Real Estate Underwriter Name Role Phone Pcp, Unknown Unavailable Unavailable Gordo Tafoya PA-C Primary Care Provider [phone] Encounter Details Date Type Department Care Team (Late st Contact Info) Description 07/19/2024 Procedure Pass [facility], [facility] [address] [place] [address] Social History Tobacco Use Types Packs/Day Years [...] st Contact Info) Description 11/22/2024 Procedure Pass [facility], Ct Scan - [address] [address] 01/30/2025 9:30 AM EST Appointment [facility], Ct Scan - [facility] [address] [place] [address] Gordo Tafoya PA-C [address] [place] [address] 02/27/2025 9:30 AM EST Appointment [facility] PFT Lab [address] [place] [address] Gordo Tafoya PA-C [address] [place] [address] 03/05/2025 9:40 AM EST Office Visit [facility] Internal Medicine [address] [place] [address] Gordo Tafoya PA-C [address] [place] [address] documented as of this encounter Visit Diagnoses Not on filedocumented in this encounter Additional Health Concerns Assessment Noted Time PHQ-9 Depression Total Score: 22 025 6:09 PM EDT PHQ-2 Depression Total Score: 6 07/11/19 25 6:09 PM EDT documented as of this encounter Care Teams Real Estate Underwriter Relationship Specialty Start Date End Date Gordo Tafoya PA-C [address] [place] [address] PCP - General Physician Master Data Analyst 04/12/24 Pcp, Unknown 03/18/17 documented as of this encounter Additional Source Comments The information contained in this document represents components of the legal health record. It is not the complete legal health record.[facility]
--- OUTSIDE RECORDS SUMMARY | 2025-01-26 10:13 | XMS_ITS | Encounter Summary ---
Author Organization [facility] Address [address] [place] [address] Phone Care Team Providers Care Store Loss Prevention Manager Name Role Phone Pcp, Unknown Unavailable Unavailable Gordo Tafoya PA-C Primary Care Provider [phone] Encounter Details Date Type Department Care Team (Late st Contact Info) Description 08/21/2024 Procedure Pass [facility], [facility] [address] [place] [address] Social History Tobacco Use Types Packs/Day Years [...] st Contact Info) Description 11/22/2024 Procedure Pass [facility], Ct Scan - [address] [address] 01/30/2025 9:30 AM EST Appointment [facility], Ct Scan - [facility] [address] [place] [address] Gordo Tafoya PA-C [address] [place] [address] 02/27/2025 9:30 AM EST Appointment [facility]FT Lab [address] [place] [address] Gordo Tafoya PA-C [address] [place] [address] 03/05/2025 9:40 AM EST Office Visit [facility] Internal Medicine [address] [place] [address] Gordo Tafoya PA-C [address] [place] [address] documented as of this encounter Visit Diagnoses Not on filedocumented in this encounter Additional Health Concerns Assessment Noted Time PHQ-9 Depression Total Score: 10 025 12:44 PM EDT PHQ-2 Depression Total Score: 3 08/19/19 25 12:44 PM EDT documented as of this encounter Care Teams Store Loss Prevention Manager Relationship Specialty Start Date End Date Gordo Tafoya PA-C [address] [place] [address] PCP - General Physician Parcel Wrapper 04/12/24 Pcp, Unknown 03/18/17 documented as of this encounter Additional Source Comments The information contained in this document represents components of the legal health record. It is not the complete legal health record.[facility]
--- OUTSIDE RECORDS SUMMARY | 2025-01-26 10:13 | XMS_ITS | Clinical Summary ---
Author Organization [facility] Address [address] [place] [address] Care Team Providers Care Chief Juvenile Probation Officer Name Role Phone Unavailable Primary Care Provider [...] 03/25/2005, 01/07/2005 Mammogram/Breast Imaging 2018 COVID-19 Vaccine (2024-2 6 season) 2024 Influenza (#1) 2024 Zoster (Shingrix) (1 of [...] complete this topic Procedures * Due to [place] law, this organization might not be sharing negative HIV tests. Procedure Name Priority Date/Time Associated Diagnosis Comments SUREPATH PAP REFLEX TO HPV Routine 08/31/2006 2:47 PM EDT from Last 3 Months or Most Recently Relevant to Health Maintenance Results * Due to [place] law, this organization might not be sharing negative HIV tests. * SUREPATH PAP REFLEX TO HPV (08/31/2006 2:47 PM EDT) PAP Smear SEE TEXT 09/07/2006 9:34 AM EDT [facility] Comment: SUREPATH SOURCE: [facility]INICAL [...] PM EDT 08/31/2006 2:47 PM EDT Narrative [facility] - 09/07/2006 9:34 AM EDT Testing performed at: [facility], [address] [place] [address], [place], [address], Cub Reporter: ELIAZAR WISEMAN M.D., CLIA ID# [id number] Oly Short NP PATHOLOGY Final Result [facility] from Last 3 Months or Most Recently Relevant to Health Maintenance
== END 2025-01-26 09:57 | disposition home or self-care (01) ==
PROVIDERS: PCP Physician Assistant Surgical; Visit Provider Nurse Practitioner Family
DX: M50.90 Cervical disc disorder, unspecified, unspecified cervical region (principal); M41.9 Scoliosis, unspecified; M47.812 Spondylosis without myelopathy or radiculopathy, cervical region; M54.12 Radiculopathy, cervical region; M48.02 Spinal stenosis, cervical region
CPT/HCPCS: 99204

== ENCOUNTER → 2025-01-26 09:23 | Outpatient (BNVA) | payer MEDICARE, MEDICAID, SELFPAY | PROVIDERS: PCP Physician Assistant Surgical; Visit Provider Nurse Practitioner Family | DX: M50.921 Unspecified cervical disc disorder at C4-C5 level (principal); M41.9 Scoliosis, unspecified; M47.812 Spondylosis without myelopathy or radiculopathy, cervical region; M54.12 Radiculopathy, cervical region; M48.02 Spinal stenosis, cervical region | CPT/HCPCS: 99202 ==